=== PATIENT | female | born 1970 | race Caucasian/White ===

== ENCOUNTER 2022-10-11 11:24 | Emergency (ER) | payer MEDICAID, SELFPAY ==
--- NOTE | ~2022-10-11 | XR_ITS ---
EXAMINATION: XR CHEST CLINICAL INFORMATION: Cough COMPARISON: None TECHNIQUE: 2 views of the chest were obtained. FINDINGS: Lungs are clear. No focal consolidation or mass. Normal pulmonary vascularity. No pleural effusion or pneumothorax. Normal heart size. There are well-corticated ossific densities adjacent the right humeral head suggesting calcific tendinitis. XR/XR chest 2V IMPRESSION: No acute pulmonary disease. Suspect calcific tendinitis of the right rotator cuff.
--- NOTE | 2022-10-11 11:34 | ED.GENADULT ---
HPI - General Adult General Chief complaint: Extremity Problem Stated complaint: covid symptons Time Seen by Provider: 10/11/22 11:34 Source: patient Mode of arrival: ambulatory Limitations: no limitations History of Present Illness HPI narrative: Patient is a 52 year old assigned female at with no reported medical history presenting to the emergency department today with left shoulder pain. Patient states that she took a home COVID-19 test 4 days ago that was positive and she has been having back pain and left shoulder pain. Patient denies any dizziness, lightheadedness, abdominal pain, nausea, vomiting, fever, chills, blurry vision, double vision, loss of vision, chest pain, difficulty breathing, shortness of breath, back pain, night sweats, pain with urination, increased urinary frequency, increased urinary urgency, blood in her urine or stool, syncope or a near syncopal episode, recent trauma or falls, bowel incontinence, bladder incontinence, bowel retention, bladder retention, or any other complaints at this time. Onset (ago): day(s) (4) Location: left (shoulder) Radiation: non-radiation Severity: mild Severity scale (1-10): 2 Quality: aching and dull Pain Consistency: constant Relieving factors: none Exacerbating factors: none Associated symptoms: denies other symptoms Treatments prior to arrival: none Related Data Allergies Allergy/AdvReac Type Severity Reaction Status Date / Time ampicillin Allergy Hives Verified 10/11/22 12:04 Review of Systems Constitutional: Constitutional: Reports no additional constitutional complaints, Denies chills, Denies fever(s) and Denies night sweats Eyes: Eyes: Reports no additional eye complaints, Denies blurry vision, Denies change in vision, Denies diplopia, Denies eye discharge, Denies loss of vision and Denies eye pain ENT: Denies dizziness Cardiovascular: Cardiovascular: Reports no additional cardiovascular complaints, Denies chest pain, Denies lightheadedness, Denies Loss of Consciousness and Denies dyspnea Respiratory: Respiratory: Reports no additional respiratory complaints and Denies dyspnea Gastrointestinal: Gastrointestinal: Reports no additional gastrointestinal complaints, Denies abdominal pain, Denies melena, Denies hematochezia, Denies change in bowel habits and Denies change in stool character Genitourinary: Genitourinary: Denies hematuria, Denies urinary frequency, Denies dysuria, Denies urinary incontinence, Denies urinary hesitancy and Denies urinary urgency Musculoskeletal: Musculoskeletal: Reports no additional musculoskeletal complaints, Denies numbness and Denies tingling Comments: left shoulder pain Neurologic: Denies dizziness, Denies loss of vision, Denies numbness and Denies tingling Psychiatric: Psychiatric: Reports no additional psychiatric complaints Endocrine: Endocrine: Reports no additional endocrine complaints Hematologic/Lymphatic: Hematologic/Lymphatic: Reports no additional hematologic/lymphatic complaints Allergic/Immunologic: Allergic/Immunologic: Reports no additional allergic/immunologic complaints PMFSH Past Medical History Attestation statement: The following information was validated with the patient. Source: old records reviewed and nursing notes reviewed Social History Social History Alcohol intake: never Smoked in Last 30 Days: No Use of substances other than those prescribed or required for medical reasons: No Advance Directives: No Advance Directives Information Provided: Yes Patient : No Physical Exam ED Vital Signs: Vital Signs - 24 hr 10/11/22 11:38 Temperature 97.4 F Pulse Rate 96 Blood Pressure 157/77 H Pulse Oximetry 97 Oxygen Delivery Method Room Air BMI result Body Mass Index 27.4 Const General: cooperative, no acute distress, alert and awake Nutritional Appearance: well nourished Orientation/consciousness: patient oriented x3 Limitations: no limitations HENMT Head: Yes normal to inspection and Yes atraumatic Ears: hearing grossly normal bilaterally and external ears normal General nose exam: Normal external nose present, no nasal discharge noted and no epistaxis Face and sinus: Yes normal facial exam, No abrasion and No laceration Mouth: Normal oral and palatal mucosa present, no drooling and no muffled voice Eyes General: appearance normal, both eyes and all related structures Periorbital: periorbital findings normal Eyelids: Yes eyelids normal Conjunctivae: conjunctivae normal Pupils: Equal, round and reactive pupils present EOM: EOMs intact bilaterally Neck Neck: Yes normal visual inspection, Yes full ROM and Yes no lymphadenopathy Chest Chest palpation & inspection: normal inspection of the chest Resp Effort & Inspection: normal respiratory effort and able to speak in complete sentences Auscultation: clear to auscultation bilaterally Cardio Rate: regular rate Rhythm: regular rhythm GI Inspection: Yes normal to inspection Palpation (GI): Soft to palpation, not firm, nontender, no guarding and not rigid Neuro General: patient oriented x3 and moves all extremities Cranial nerves: Yes Equal, round and reactive pupils present Cognition (Neuro): normal cognition Motor exam (neuro): 5/5 motor strength present throughout Sensory Exam: Normal double simultaneous stimulation for sensation Coordination: [id number] test normal Extrem General: Yes normal to inspection, Yes full ROM and Yes capillary refill normal Psych Appearance: grossly normal Mental Status: mental status grossly normal Affect: normal affect Attitude: cooperative Thought process: Normal thought process present Thought content: Normal thought content present Insight: Good insight present (Psych) Medical Decision Making Medical Decision Making [facility] Narrative: Patient is a 52 year old assigned female at with no reported medical history presenting to the emergency department today with left shoulder pain. Patient's physical exam was unremarkable. Patient's COVID-19 test was positive. Patient's chest x-ray showed no acute process. I explained my physical exam findings as well as all test results to the patient. Patient's clinical presentation is most consistent with general myalgias with current COVID-19 infection. I answered all questions asked by the patient. I stressed the importance of the patient taking her medication as prescribed. I stressed the importance of the patient following up with her primary care provider. I stressed the importance of the patient returning to the emergency department immediately if her symptoms were to worsen or if she were to develop any dizziness, shortness of breath, difficulty breathing, chest pain, blurry vision, loss of vision, nausea, vomiting, abdominal pain, fever, chills, back pain, or any other complaints. Patient verbalized agreement and understanding with this treatment plan and discharge. Differential Diagnosis Differential Diagnoses: The differential diagnosis associated with the presentation includes COVID-19, myalgias Lab Data [facility] Lab Attestation statement: I reviewed the patient's lab results. Labs: Lab Results 10/11/22 Range/Units 12:28 Influenza Type A (PCR) NEGATIVE (Negative) Influenza Type B (PCR) NEGATIVE (Negative) RSV RNA Qual (PCR) NEGATIVE (Negative) SARS-CoV-2 RNA (RT-PCR) POSITIVE A (Negative) Radiology Impression Discussion of test interpretation with radiology: I have reviewed the radiologist's reading. Radiologist Impression: My interpretation is in agreement with the radiologist's impression of this imaging study. EXAMINATION: XR CHEST CLINICAL INFORMATION: Cough COMPARISON: None TECHNIQUE: 2 views of the chest were obtained. FINDINGS: Lungs are clear. No focal consolidation or mass. Normal pulmonary vascularity. No pleural effusion or pneumothorax.? Normal heart size. There are well-corticated ossific densities adjacent the right humeral head suggesting calcific tendinitis. XR/XR chest 2V IMPRESSION: No acute pulmonary disease. ? Suspect calcific tendinitis of the right rotator cuff. Dictated By: Benjy Hill MD Signed By: Electronically signed by Benjy Hill MD 10/11/22 1468 Discharge Plan Discharge Clinical Impression: COVID-19 Patient Disposition: Home, Self-Care Instructions: COVID-19 (Coronavirus Disease 2019) (ED) Additional Instructions: Follow up with your primary care provider. Return to the emergency department immediately if your symptoms worsen or if you develop any dizziness, shortness of breath, difficulty breathing, chest pain, blurry vision, loss of vision, nausea, vomiting, abdominal pain, fever, chills, back pain, or any other complaints. Referrals: [facility] Family Medicine [Provider Group] (Call to establish and follow up with a primary care provider. If you already have a primary care provider, please follow up with them. ) [facility] [Provider Group] (Call to establish and follow up with a primary care provider. If you already have a primary care provider, please follow up with them. ) [facility] [Provider Group] (Call to establish and follow up with a primary care provider. If you already have a primary care provider, please follow up with them. ) Interventions: ED Discharge Assessment Last Done: 10/11/22 13:54 Print Language: Macanese
[2022-10-11 11:38] VITALS: BP 157/77; PULSE 96; TEMP 36.3; O2SAT 97
[2022-10-11 12:02] VITALS: BMI 27.4
[2022-10-11 13:31] LABS: Influenza A PCR NEGATIVE (Negative); Influenza B PCR NEGATIVE (Negative); Resp Syncy Virus RNA Qual PCR NEGATIVE (Negative); SARS COV2 PCR INHOUSE POSITIVE (Negative)
== END 2022-10-11 13:54 | disposition home or self-care (01) ==
PROVIDERS: Physician Assistant Medical; Emergency Provider Emergency Medicine
DX: U07.1 COVID-19 (principal); M25.512 Pain in left shoulder
CPT/HCPCS: 0241U; 71046; 99283; 99284

== ENCOUNTER 2024-03-13 10:53 | Outpatient (REF) | payer MEDICAID, SELFPAY ==
[2024-03-13 14:24] LABS: MANUAL DIFF FLAG NO
[2024-03-13 14:36] LABS: Basophils Absolute Auto 0.1 X10*3/uL (0.0-0.2); Basophils Percent Auto 1.1 % (0-2); Eosinophils Absolute Auto 0.2 X10*3/uL (0.0-0.4); Eosinophils Percent Auto 2.4 % (0-4); Hematocrit 44.1 % (37.0-47.0); Hemoglobin 14.7 g/dl (12.0-16.0); Imm Gran Abs Auto 0.04 X10*3/uL (0.00-0.03); Imm Gran Pct Auto 0.5 % (0.0-0.4); Lymphocytes Absolute Auto 2.9 X10*3/uL (1.2-4.9); Lymphocytes Percent Auto 34.9 % (20-40); Mean Corpuscular HGB Conc 33.3 g/dl (31.0-35.0); Mean Corpuscular Hemoglobin 28.7 pg (27.0-33.0); Mean Corpuscular Volume 86.1 fL (80.0-98.0); Mean Platelet Volume 10.2 fL (9.4-12.3); Monocytes Absolute Auto 0.6 X10*3/uL (0.1-1.2); Monocytes Percent Auto 7.8 % (2-11); Neutrophils Absolute Auto 4.4 x10*3/uL (2.0-8.3); Neutrophils Percent Auto 53.3 % (45-73); Platelet Count 336 X10*3/uL (160-400); Red Blood Count 5.12 X10*6/uL (4.20-5.50); Red Cell Distribution Width 12.6 % (11.0-16.0); White Blood Count 8.2 X10*3/uL (4.8-10.8)
[2024-03-13 14:59] LABS: Magnesium 1.9 mg/dL (1.6-2.6)
[2024-03-13 15:15] LABS: TSH reflex Free T4 0.54 uIU/mL (0.32-4.0)
[2024-03-13 15:25] LABS: Folate 12.6 ng/mL (> or = 4.0); Vitamin B12 792 pg/mL (200-900)
[2024-03-14 03:57] LABS: Syphilis Screen Nonreactive (Nonreactive)
== END 2024-03-13 10:54 | disposition home or self-care (01) ==
LOC: HO.CHCLDS 10:53
PROVIDERS: Visit Provider Pediatrics
DX: R41.3 Other amnesia (principal)
CPT/HCPCS: 36415; 82607; 82746; 83735; 84443; 85025; 86780

== ENCOUNTER 2025-02-23 11:20 | Emergency (ER) | payer MEDICAID, SELFPAY ==
--- NOTE | ~2025-02-23 | XR_ITS ---
CLINICAL HISTORY: pain 3 view right shoulder Comparison: None Findings: No fractures or dislocations. Linear calcifications noted along the distal supraspinatus tendon. Mild joint space narrowing of the glenohumeral and acromioclavicular joints. No erosions. No radiopaque foreign body. IMPRESSION: No fracture or malalignment. Degenerative change and probable calcific tendinosis. This document has been electronically signed by: Quincy Ellis MD on 02/23/2025 12:27:38
[2025-02-23 11:30] VITALS: BP 171/79; PULSE 91; RESP 18; TEMP 36.3; O2SAT 95; BMI 29.7
--- NOTE | 2025-02-23 11:33 | ED_ITS ---
HPI - General Adult General Chief complaint: Extremity Injury, Upper Stated complaint: R arm pain, no injury Time Seen by Provider: 02/23/25 12:30 Source: patient and family () Mode of arrival: ambulatory Limitations: no limitations History of Present Illness ED Provider: KINGA THAO PA-C HPI narrative: 55 year old female with no significant pmhx presents to the ED today for evaluation of right shoulder pain that woke her from her sleep early this morning around 0430. Reports taking Tylenol at that time and was able to go back to sleep. When she woke up, her right shoulder pain was still present. Pain originates in right shoulder and radiates down to her fingers. Pain will occasionally radiate to her right chest. Pain is exacerbated wtih movement of the right shoulder. Admits to decreased ROM of right shoulder secondary to pain. No history of similar. No blunt trauma or injury. 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 Reports going bowling yesterday with repetitive arm movements. Denies cardiac history. Denies fever, chills, palpitations, SOB. Related Data Previous Rx's ?Medication ?Instructions ?Recorded prednisone 50 mg tablet 50 mg PO DAILY 5 days #5 tabs 02/23/25 Allergies Allergy/AdvReac Type Severity Reaction Status Date / Time ampicillin Allergy Hives Verified 02/23/25 11:32 Review of Systems 2 Review of Systems: Constitutional: No fever, chills, fatigue, night sweats, weight changes ENT/Mouth: No ear pain, hearing loss, nasal congestion, sinus pain, rhinorrhea, sore throat Eyes: No eye pain, swelling, redness, vision changes, discharge Cardio: No chest pain, palpitations, [place], orthopnea, peripheral edema Pulm: No SOB, cough, sputum, wheezing, dyspnea, hemoptysis GI: No nausea, vomiting, hematemesis, abdominal pain, diarrhea, constipation, hematochezia, melena : No irregular bleeding, dysuria, frequency, urgency, hesitancy, hematuria, flank pain, urinary flow changes, urinary incontinence or retention MSK: No back pain, neck pain, joint pain, myalgias, +RUE pain Skin: No lesions, rashes Neuro: No weakness, numbness, paresthesias, LOC, dizziness, headache Psych: No anxiety/panic, depression, SI/HI, AH/VH All other systems reviewed and are negative. Yes all other systems are reviewed and are negative [facility] Past Medical History Attestation statement: The following information was validated with the patient. Source: old records reviewed and nursing notes reviewed Social History Social History Alcohol intake: never Use of substances other than those prescribed or required for medical reasons: No Advance Directives: No Advance Directives Information Provided: Yes Patient : No Physical Exam ED Vital Signs: Vital Signs - 24 hr 02/23/25 13:24 02/23/25 14:36 Temperature 98.2 F Pulse Rate 77 77 Respiratory Rate 18 18 Blood Pressure 140/89 H 140/89 H Pulse Oximetry 95 95 Oxygen Delivery Method Room Air Room Air BMI result Body Mass Index 29.7 Hypertensive, vitals otherwise WNL. Afebrile General: Well appearing, in no acute distress. Skin: Warm, dry, intact. No rashes or lesions. Head: Normocephalic, atraumatic. EENT: Hearing is intact b/l. Conjunctiva clear. PERRLA. EOM intact. Moist mucous membranes.? Cardiac: Chest wall symmetric. RRR. Lungs: Normal respiratory effort without accessory muscle use. CTA bilaterally. Back: No midline spinous or paraspinal tenderness. No step off deformity. Ext: +tender to palpation along lateral aspect of right shoulder extending into right trapezius muscle. no palpable deformity, crepitus, warmth. limited ROM of right shoulder on abduction/extension. holding shoulder in adduction. able to supinate/pronate R elbow. 2+ radial pulse. sensation intact. 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 Neuro: AOx3. Normal speech. Ambulating with steady gait. Course Course Course Narrative: RME performed by Marian Mercer PA-C. Patient is a 55 year old assigned female at presenting to the emergency department with right shoulder pain x 2 weeks. Patient states over the last 2 weeks her shoulder pain has gotten significantly worse to the point where she can't move it well anymore. Detailed physical exam and review of systems are deferred to the esthetician permanent makeup artist. Imaging ordered. Patient placed back in the waiting room pending room availability and results. Reevaluation(s) Reevaluation #1: CBC without leukocutosis or left shift. No anemia, h&h stable. chemistry without acute electrolyte abnormality requiring intervention. BUN mildly elevated to 18, normal creatinine. troponin wnl at 3.6. ekg showing NSR with a rate of incomplete RBBB (evident on priors), no acute ischemic changes or st elevations. > xr right shoulder showing degenerative changes and probably calcific tendinosis. this is consistent with physical exam findings. will treat with prednisone. placed in sling, advised ROM throughout the day. advised PCP/ortho follow up. Patient has remained stable throughout ED visit today. Discussed worrisome signs and symptoms and when to return to the ED. All questions answered at this time. Patient is agreeable with disposition and stable for discharge. Medications Administered Discontinued Medications Generic Name Dose Route Start Last Admin Trade Name Freq PRN Reason Stop Dose Admin Ketorolac Tromethamine 30 mg 02/23/25 12:56 02/23/25 13:18 Ketorolac Tromethamine 30 Mg/Ml Vial IM 02/23/25 12:57 30 mg ONCE ONE Administration Medical Decision Making Medical Decision Making [facility] Narrative: 55 year old female with no significant pmhx presents to the ED today for evaluation of right shoulder pain that woke her from her sleep early this morning around 0430. Hypertensive, vitals otherwise WNL. She is nontoxic appearing in no acute distress. On exam of RUE, tender to palpation along lateral aspect of right shoulder extending into right trapezius muscle. no palpable deformity, crepitus, warmth. limited ROM of right shoulder on abduction/extension. holding shoulder in adduction. able to supinate/pronate R elbow. 2+ radial pulse. sensation intact. 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 Differential diagnosis includes arthritis, MSK sprain/strain, tendonitis, rotator cuff injury. Unlikely gout, pseudogout,, septic joint, Lyme arthritis. Unlikely DVT, neurovascular compromise, threat to limb, compartment syndrome. I have also considered ACS, arrhythmia. Unlikely PE. Plan for labs, imaging, pain control, and re-evaluation. Differential Diagnosis Differential Diagnoses: The differential diagnosis associated with the presentation includes As above Admission/Observation Not indicated Lab Data [facility] Lab Attestation statement: I reviewed the patient's lab results. As above 02/23/25 13:12 02/23/25 13:12 Labs: Lab Results 02/23/25 Range/Units 13:12 WBC 9.3 (4.8-10.8) X10*3/uL RBC 5.16 (4.20-5.50) X10*6/uL Hgb 14.5 (12.0-16.0) g/dl Hct 42.9 (37.0-47.0) % MCV 83.1 (80.0-98.0) fL MCH 28.1 (27.0-33.0) pg MCHC 33.8 (31.0-35.0) g/dl RDW 12.9 (11.0-16.0) % Plt Count 318 (160-400) X10*3/uL MPV 9.3 L (9.4-12.3) fL Immature Gran % (Auto) 0.5 H (0.0-0.4) % Neut % (Auto) 59.4 (45-73) % Lymph % (Auto) 29.8 (20-40) % [place] % (Auto) 7.4 (2-11) % Eos % (Auto) 2.0 (0-4) % Baso % (Auto) 0.9 (0-2) % Lymph # (Auto) 2.8 (1.2-4.9) X10*3/uL [place] # (Auto) 0.7 (0.1-1.2) X10*3/uL Eos # (Auto) 0.2 (0.0-0.4) X10*3/uL Baso # (Auto) 0.1 (0.0-0.2) X10*3/uL Abs Immat Gran (auto) 0.05 H (0.00-0.03) X10*3/uL Absolute Neuts (auto) 5.5 (2.0-8.3) x10*3/uL Absolute Nucleated RBC 0.030 H (0.0-0.012) X10*3/uL Nucleated RBC % (auto) 0.3 H (0.0-0.2) /100WBC Sodium 143 (135-145) mmol/L Potassium 3.9 (3.3-5.1) mmol/L Chloride 109 H (96-108) mmol/L Carbon Dioxide 25 (22-29) mmol/L Anion Gap 13 (12-20) BUN 18 H (9-16) mg/dL Creatinine 0.66 (0.5-1.4) mg/dL Estim Creat Clear Calc 91.8 Estimated GFR > 60 Random Glucose 90 (60-115) mg/dL Calcium 10.0 (8.4-10.2) mg/dL Magnesium 1.9 (1.6-2.6) mg/dL Troponin I High Sens 3.6 (<3.5-17.0) ng/L Independent Interpretation I performed an independent interpretation of an: EKG and Plain X-Ray Interpretation: xr right shoulder without fracture ekg showing normal sinus rhythm, rate of 76 beats per minute, incomplete right bundle-branch block evident on prior EKGs, no acute ischemic changes or ST elevations. Radiology Impression Discussion of test interpretation with radiology: I have reviewed the radiologist's reading. Radiologist Impression: Date of Service: 02/23/25 Procedure(s): XR shoulder RT min 2V Accession Number(s): [id number] cc: Audrey Ayon MD; Marian Mercer~ CLINICAL HISTORY: pain 3 view right shoulder Comparison: None Findings: No fractures or dislocations. Linear calcifications noted along the distal supraspinatus tendon. Mild joint space narrowing of the glenohumeral and acromioclavicular joints. No erosions. No radiopaque foreign body. IMPRESSION: No fracture or malalignment. Degenerative change and probable calcific tendinosis. This document has been electronically signed by: Quincy Ellis MD on 02/23/2025 12:27:38 Independent Historian Clinical information obtained from an independent historian. History obtained from or confirmed by: Spouse () External Record Review External record reviewed: Inpatient record Prescription Management I considered prescription management with: Other (Prednisone) Social Determinants Patient?s care significantly limited by Social Determinants of Health including: Other Social Determinant of Health Critical Care Time Critical Care Time Critical Care Time: No Discharge Plan Discharge Clinical Impression: Calcific tendinitis of right shoulder Patient Disposition: Home, Self-Care Instructions: Rotator Cuff Tendinitis (ED), Calcific Tendinitis (ED) Additional Instructions: You were evaluated in the ED today for right shoulder pain. Your blood work is reassuring. The x-ray of your right shoulder shows findings concerning for calcific tendonitis. See home care instructions. Treatment for this is pain management. Prednisone is a steroid that has been sent to your pharmacy. Take this as prescribed x5 days. I also recommend Tylenol and Motrin at home. Follow up with PCP. You may need a referral to physical therapy. Return with new or worsening symptoms. In the case of an emergency call 911. Prescriptions: New prednisone 50 mg tablet 50 mg PO DAILY 5 Days Qty: 5 0RF Referrals: [facility] Surgeons [Provider Group] Audrey Ayon MD [Primary Care Provider] - Interventions: ED Discharge Assessment Last Done: 02/23/25 14:36 Discharge Date/Time: 02/23/25 14:36 Print Language: Sammarinese
--- NOTE | 2025-02-23 12:55 | ECG_ITS ---
Test Reason : RIGHT SHOULDER Blood Pressure : */* mmHG Vent. Rate : 76 BPM Atrial Rate : 76 BPM P-R Int : 160 ms QRS Dur : 100 ms QT Int : 416 ms P-R-T Axes : 44 -25 15 degrees QTcB Int : 468 ms Normal sinus rhythm Incomplete right bundle branch block Minimal voltage criteria for LVH, may be normal variant ( R in aVL ) Nonspecific ST abnormality Abnormal ECG No previous ECGs available Referred By: Alice Roque Electronically Signed By: BARI PENG MD
[2025-02-23 13:16] LABS: MANUAL DIFF FLAG NO
[2025-02-23 13:17] LABS: Basophils Absolute Auto 0.1 X10*3/uL (0.0-0.2); Basophils Percent Auto 0.9 % (0-2); Eosinophils Absolute Auto 0.2 X10*3/uL (0.0-0.4); Hematocrit 42.9 % (37.0-47.0); Hemoglobin 14.5 g/dl (12.0-16.0); Imm Gran Abs Auto 0.05 X10*3/uL (0.00-0.03); Imm Gran Pct Auto 0.5 % (0.0-0.4); Lymphocytes Absolute Auto 2.8 X10*3/uL (1.2-4.9); Lymphocytes Percent Auto 29.8 % (20-40); Mean Corpuscular HGB Conc 33.8 g/dl (31.0-35.0); Mean Corpuscular Hemoglobin 28.1 pg (27.0-33.0); Mean Corpuscular Volume 83.1 fL (80.0-98.0); Mean Platelet Volume 9.3 fL (9.4-12.3); Monocytes Absolute Auto 0.7 X10*3/uL (0.1-1.2); Monocytes Percent Auto 7.4 % (2-11); NRBC Pct Auto 0.3 /100WBC (0.0-0.2); Neutrophils Absolute Auto 5.5 x10*3/uL (2.0-8.3); Neutrophils Percent Auto 59.4 % (45-73); Platelet Count 318 X10*3/uL (160-400); Red Blood Count 5.16 X10*6/uL (4.20-5.50); Red Cell Distribution Width 12.9 % (11.0-16.0); White Blood Count 9.3 X10*3/uL (4.8-10.8)
[2025-02-23] MEDS: Ketorolac Tromethamine 30 MG/ML VIAL IM (13:18)
--- NOTE | 2025-02-23 13:23 | PC.NURSE ---
IV started on pt. Informed provider that iv was started and that toradol will be given iv instead of IM. Provider okayed that.
[2025-02-23 13:24] VITALS: BP 140/89; PULSE 77; RESP 18; O2SAT 95
[2025-02-23 13:37] LABS: Anion Gap 13 (12-20); Blood Urea Nitrogen 18 mg/dL (9-16); Carbon Dioxide 25 mmol/L (22-29); Chloride 109 mmol/L (96-108); Creatinine Clr Calc Pharmacy 91.8; Estimated Glomerular Filt Rate > 60; Glucose Random 90 mg/dL (60-115); Magnesium 1.9 mg/dL (1.6-2.6); Potassium 3.9 mmol/L (3.3-5.1); Sodium 143 mmol/L (135-145)
[2025-02-23 13:44] LABS: Troponin-I High Sensitivity 3.6 ng/L (<3.5-17.0)
[2025-02-23 14:36] VITALS: BP 140/89; PULSE 77; RESP 18; TEMP 36.8; O2SAT 95
== END 2025-02-23 14:36 | disposition home or self-care (01) ==
PROVIDERS: Physician Assistant Medical; Emergency Provider Emergency Medicine; PCP Pediatrics
DX: M75.31 Calcific tendinitis of right shoulder (principal); M25.511 Pain in right shoulder
CPT/HCPCS: 36415; 73030; 80048; 83735; 84484; 85025; 93005; 96372; 99284; 99285; J1885

== ENCOUNTER → 2025-02-23 11:33 | Outpatient (BNV) | payer MEDICAID, SELFPAY | PROVIDERS: Emergency Provider Emergency Medicine; PCP Pediatrics; Visit Provider Radiology Vascular & Interventional Radiology | DX: M19.011 Primary osteoarthritis, right shoulder (principal) | CPT/HCPCS: 73030 ==

== ENCOUNTER → 2025-02-23 12:55 | Outpatient (BNV) | payer MEDICAID, SELFPAY | PROVIDERS: Emergency Provider Emergency Medicine; PCP Pediatrics; Visit Provider Internal Medicine Cardiovascular Disease | DX: I45.10 Unspecified right bundle-branch block (principal) | CPT/HCPCS: 93010 ==

== ENCOUNTER 2025-04-17 14:00 | Outpatient (RCR) | payer MEDICAID, SELFPAY | END 2025-05-17 06:15 | disposition home or self-care (01) | LOC: HO.PTCHIC 14:00 | PROVIDERS: PCP Pediatrics; Visit Provider Pediatrics | DX: M67.813 Other specified disorders of tendon, right shoulder (principal) | CPT/HCPCS: 97110; 97140; 97161 ==

== ENCOUNTER 2025-04-22 11:11 | Outpatient (AMB) | payer MEDICAID, SELFPAY ==
[2025-04-22 11:14] VITALS: BMI 29.6
--- NOTE | 2025-04-22 11:14 | MHC.OFFVIS ---
Vital Signs 04/22/25 11:14 Height 5 ft 3 in Weight 167 lb BMI 29.6 Intake Visit Reasons: Right shoulder pain and weakness Intake Note: Graciela is a 55 year old female left hand dominant who presents with complaints of progressively worsening right shoulder pain and weakness. The patient describes her pain as sharp and severe in nature. Her symptoms have gotten worse over the last 6 months in spite of continued non operative treatments. She has failed the last 6 weeks of conservative treatment which has included Tylenol, anti-inflammatory medicines, prednisone, a cortisone injection and formal physical therapy. She reports difficulty lifting her right hand above shoulder height. 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 No heavy Lifting. Physical Exam Vital Signs: BMI result Body Mass Index 29.6 Const Other: Well-nourished well-developed very friendly female awake alert and oriented x3 in no acute distress Extrem Other: Bilateral upper extremity examination shows good capillary refill, no skin lesions noted, normal sensation light touch Right shoulder examination shows decreased range of motion when compared to her left shoulder, 4+ out of 5 strength with supraspinatus testing, positive impingement signs, tenderness over her acromioclavicular joint, no instability Results Reviewed Results Reviewed: X-rays of the patient's right shoulder show severe acromioclavicular joint narrowing, a type 3 acromion, a small calcium deposit within the supraspinatus tendon Assessment & Plan Assessment & Plan (1) Rotator cuff insufficiency of right shoulder: Code(s): M25.311 - Other instability, right shoulder Category: Medical Plan Ms. Minaya presents with right shoulder pain and weakness due to impingement syndrome, calcific tendinitis and possible full-thickness rotator cuff tearing. Thus, I will send the patient for an MRI of her right shoulder for further evaluation. I will see her back once the MRI is completed to discuss the findings and treatment options. Feel free to call me at any time should questions regarding her orthopedic management arise. Thank you very much for asking me to see this very friendly patient. I spent 22 minutes in reviewing the patient's records and imaging studies, seeing the patient and documenting in the medical record. Orders: Orders MR shoulder RT wo con 04/23/25 M25.311 - Other instability, right shoulder Medications: Discontinued prednisone Discontinued Reason: Patient no longer taking 50 mg PO DAILY 5 days 5 tabs 0RF Coding Level of Care Code New Pt Level 3 (39398) Complex EM visit Add On G2211 Diagnoses Rotator cuff insufficiency of right shoulder M25.311
--- OUTSIDE RECORDS SUMMARY | 2025-04-22 12:29 | XMS_ITS | Encounter Summary ---
Author Organization [employer] Address [address] [place] [address] [place] [address] Care Team Providers Care Client Solutions Manager Name Role Phone Audrey Ayon MD Primary Care Provider [phone] Encounter Details Date Type Department Care Team (Latest Contact Info) Description 06/02/2022 Abstract [facility] CONVERSIONS Dental, Provider, DDS Social History Tobacco Use Types Packs/Day Years Used Date Smoking Tobacco: Never Assessed Comments Unknown Sex and Gender Information Value Date Recorded Sex Assigned at Female 07/26/2022 10:40 AM EDT Legal Sex Female 10:40 AM EDT Gender Identity Female 07/26/2022 10:40 AM EDT Sexual Orientation Straight 07/26/2022 10 :40 AM EDT documented as of this encounter Plan of Treatment Upcoming Encounters Date Type Department Care Team (Late st Contact Info) Description 06/24/2025 9:15 AM EDT Office Visit [facility] [address] [place] [address] Vidhya Bush MD [address] [place] [address] documented as of this encounter Visit Diagnoses Not on filedocumented in this encounter Care Teams Client Solutions Manager Relationship Specialty Start Date End Date Audrey Ayon MD [address] [place] [address] PCP - General Internal Medicine 02/01/23 documented as of this encounter
== END 2025-04-22 11:36 | disposition home or self-care (01) ==
LOC: HO.HOS 11:11
PROVIDERS: PCP Pediatrics; Visit Provider Orthopaedic Surgery
DX: M25.311 Other instability, right shoulder (principal)
CPT/HCPCS: 99203

== ENCOUNTER → 2025-04-22 11:11 | Outpatient (BNVA) | payer MEDICAID, SELFPAY | PROVIDERS: PCP Pediatrics; Visit Provider Orthopaedic Surgery | DX: M25.511 Pain in right shoulder (principal); M25.311 Other instability, right shoulder | CPT/HCPCS: 99202 ==

== ENCOUNTER → 2025-05-05 07:54 | Outpatient (BNV) | payer MEDICAID, SELFPAY | PROVIDERS: PCP Pediatrics; Visit Provider Radiology Diagnostic Radiology | DX: M25.311 Other instability, right shoulder (principal) | CPT/HCPCS: 73221 ==

== ENCOUNTER 2025-05-05 08:27 | Outpatient (REF) | payer MEDICAID, SELFPAY ==
--- NOTE | ~2025-05-05 | MR_ITS ---
CLINICAL HISTORY: M25.311 - Other instability, right shoulder Exam: MRI of the right shoulder without intravenous contrast. Comparison: Radiographs February 23, 2025. Findings: No rotator cuff tears are identified. Mild tendinopathy of the distal supraspinatus and infraspinatus tendons. Calcification in the expected location of the distal rotator cuff on the patient's radiographs is identified within the anterior and distal fibers of the supraspinatus tendon. Teres minor and subscapularis tendons are unremarkable. Mild glenohumeral joint DJD with areas of cartilage irregularity and osteophyte formation. No discrete labral tear. The tendon of the long head of the biceps is appropriately positioned within the bicipital groove. There is a type 2 acromion. Mild degenerative change of the AC joint. Impression: 1. 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 2. No rotator cuff tear. 3. 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 This document has been electronically signed by: Javid Gore MD on 05/07/2025 18:50:50
== END 2025-05-05 08:28 | disposition home or self-care (01) ==
LOC: HO.MRI 08:27
PROVIDERS: PCP Pediatrics; Visit Provider Orthopaedic Surgery
DX: M25.311 Other instability, right shoulder (principal)
CPT/HCPCS: 73221

== ENCOUNTER 2025-06-11 09:46 | Outpatient (AMB) | payer MEDICAID, SELFPAY ==
--- NOTE | 2025-06-11 09:51 | A.OFFVIS_ITS ---
Vital Signs 06/11/25 09:54 Height 5 ft 3 in Weight 165 lb BMI 29.2 Intake Visit Reasons: OV- Rt shoulder MRI review Intake Note: Graciela is a 55 year old female who presents with complaints of progressively worsening right shoulder pain and stiffness. She describes her pain as sharp and severe in nature. Most of the pain is along the superior and lateral aspects of her shoulder. Her symptoms have gotten worse over the last few years in spite of continued non operative treatments. The patient states that she has difficulty lifting her right hand above shoulder height. She has tried Tylenol and anti-inflammatory medicines which gave her minimal relief. She has also done physical therapy which aggravated her pain. She has had cortisone injections in the past. The most recent injection gave her no relief. 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 No heavy Lifting. Physical Exam Vital Signs: BMI result Body Mass Index 29.2 Const Other: Well-nourished well-developed very friendly female awake alert and oriented x3 in no acute distress Extrem Other: Right shoulder examination shows decreased active and passive range of motion when compared to her left shoulder, 4+ out of 5 strength with supraspinatus testing, positive impingement signs, no instability Results Reviewed Results Reviewed: MRI of the patient's right shoulder show severe acromioclavicular joint n arrowing, a type 2 acromion, signal change within the supraspinatus tendon most likely due to adhesive capsulitis, a small calcium deposit within the supraspinatus tendon Assessment & Plan Assessment & Plan (1) Impingement syndrome of left shoulder: Code(s): M75.42 - Impingement syndrome of left shoulder Category: Medical Plan Ms. Minaya presents with right shoulder pain and stiffness due to impingement syndrome, acromioclavicular joint arthritis, adhesive capsulitis and a small calcium deposit within the supraspinatus tendon. I had a lengthy discussion with the patient regarding the treatment options. At this point she has failed continued non operative treatments. The risks and benefits of left shoulder surgery were discussed at length with the patient. The patient wishes to proceed. Surgery will most likely involve right shoulder arthroscopic distal clavicle excision, right shoulder arthroscopic acromioplasty, right shoulder arthroscopic capsular release and manipulation under anesthesia. The patient will be scheduled for next available date. She will follow-up as instructed. Feel free to call me at any time should questions regarding her orthopedic management arise. I spent 20 minutes in reviewing the patient's records and imaging studies, seeing the patient and documenting in the medical record. Coding Level of Care Code Est Pt Level 3 (95381) Complex EM visit Add On G2211 Diagnoses Impingement syndrome of left shoulder M75.42
[2025-06-11 09:54] VITALS: BMI 29.2
--- OUTSIDE RECORDS SUMMARY | 2025-06-11 12:32 | XMS_ITS | Clinical Summary ---
Author Organization [employer] Address [address] [place] [address] 7 [place] [address] Care Team Providers Care Dinkey Locomotive Operator Name Role Phone Audrey Ayon MD Primary Care Provider [phone] Allergies Active Allergy Reactions Criticality Noted Date Comments Ampicillin Hives Low 03/13/2024 Acetaminophen Low 03/13/2024 Upset stomach Medications meloxicam (Mobic) 7.5 MG tablet Take 1 tablet (7.5 mg) by mouth 2 times daily. 60 tablet 11 03/20/2025 Active Diclofenac Sodium (Voltaren) 1 % gel Use topical BID 100 g 3 03/20/2025 Active cyclobenzaprine (Flexeril) 10 MG tablet TAKE 1 TABLET BY MOUTH THREE TIMES DAILY FOR 10 DAYS 30 tablet 04/01/2025 Active Active Problems Problem Noted Date Diagnosed Date Anxiety 01/27/2023 Mood disorder 01/27/2023 Encounters Date Type Department Care Team Description 06/11/2025 Telephone [facility] [address] [place] [address] Audrey Ayon MD Pre-op Exam 05/05/2025 Orders Only [facility] External Provider, [facility] 04/05/2025 Telephone [facility] [address] [place] [address] Audrey Ayon MD Nurse Triage 04/05/2025 Telephone [facility] [address] [place] [address] Audrey Ayon MD Medication Question 03/31/2025 Refill [facility] [address] [facility] [place] [address] Vidhya Bush MD 03/20/2025 8:45 AM EDT Office Visit [facility] [address] [facility] [place] [address] Vidhya Bush MD Tendinosis of right shoulder (Primary Dx) 03/20/2025 Travel 03/19/2025 Travel from Last 3 Months Social History Tobacco Use Types Packs/Day Years Used Date Smoking Tobacco: Never Passive Smoke Exposure: Never Smokeless Tobacco: Never Tobacco Cessation:Counseling Given: Not Answered Depression Answer Date Recorded Patient Health Questionnaire-9 Score 10 03/13/2024 Patient Health Questionnaire-9 Score 10 03/13/2024 Last PHQ-9: Questionnaire Data Not on file 0 03/13/2024 Housing Stability Answer Date Recorded What is your housing situation today? I have shana herman 03/05/[address] you li ve. Do you have problems with any of the following? None of the above 03/05/2024 Food Insecurity Answer Date Recorded Within the past 12 months, y ou worried that your food would run out before you got money to buy more: Never True 03/05/2024 Within the past 12 months,th e food you bought just didn't last and you didn't have enough money to get more: Never True 06/2024 Transportation Answer Date Recorded In the past 12 months, has l ack of transportation kept you from medical appts, meetings, work or from getting things needed for daily living? No 03/05/2024 Utilities Answer Date Recorded In the past 12 months, has t he [employer], gas, oil or water [employer] threatened to shut off services in your home? No 03/05/2024 Depression Answer Date Recorded Patient Health Questionnaire-2 Score 0 03/13/2024 Internet Access Answer Date Recorded Internet Access Q1 Yes 01/17/2025 Internet Access Q2 Not on file 01/17/2025 Comments No Sex and Gender Information Value Date Recorded Sex Assigned at Female 07/26/2022 10:40 AM EDT Legal Sex Female 10:40 AM EDT Gender Identity Female 07/26/2022 10:40 AM EDT Sexual Orientation Straight 07/26/2022 10 :40 AM EDT Last Filed Vital Signs Vital Sign Reading Time Taken Comments Blood Pressure 157/89 03/20/2025 8:52 AM EDT Pulse 80 03/20/2025 8:52 AM EDT Temperature 37.1 C (98.7 F) 03/20/2025 8:52 AM EDT Respiratory Rate 14 03/20/2025 8:52 AM EDT Oxygen Saturation 97% 03/20/2025 8:52 AM EDT Inhaled Oxygen Concentration - - Weight 72.6 kg (160 lb) 03/20/2025 8:52 AM EDT Height 160 cm (5' 3 ) 03/20/2025 8:52 AM EDT Body Mass Index 28.34 03/20/2025 8:52 AM EDT Plan of Treatment Upcoming Encounters Date Type Department Care Team (Late st Contact Info) Description 06/24/2025 9:15 AM EDT Office Visit [facility] [address] [place] [address] Vidhya Bush MD [address] [place] [address] Health Maintenance Due Date Last Done Comments CT Colonography 1968 Colonoscopy 1968 Dental Prophylaxis 1968 FIT 1968 FOBT 1968 Sigmoidoscopy 1968 Alcohol/Substance Use Screening 1980 DTaP/Tdap/Td Vaccines (1 - Tdap) 01/08/1987 Hepatitis B Vaccines (1 of 3 - 19+ 3-dose series) 01/08/1987 Pneumococcal Vaccine: 50+ Years (1 of 1 - PCV) 01/08/2018 Zoster Vaccines (1 of 2) 01/08/2018 Dental Oral Exam 12/01/2022 06/02/2022 Dental X-Ray: Bitewings 06/03/2023 06/02/2022 Depression Monitoring 09/12/2024 03/13/2024 , 03/13/2024 COVID-19 Vaccine (1 - 2023-2 5 season) 2025 Influenza Vaccine (#1) 2025 Dental X-Ray: Full Mouth 06/03/2025 06/02/2022 SDOH Screening 01/17/2026 01/17/2025 Colorectal Cancer Screening 02/10/2026 FIT DNA/Cologuard 02/10/2026 Mammogram 02/20/2026 02/21/2024 Disability Screening 03/01/2026 03/01/2025 Tobacco Screening 03/05/2026 03/05/2025 Cervical Cancer Screening 02/02/2028 HPV/Cotest 02/02/2028 02/01/2023 Pap Smear 02/02/2028 02/01/2023 RSV Patients and Patients Aged 60 years or older (1 - 1-dose 75+ series) 01/08/2043 HIV Screening Completed 01/28/2023 Hepatitis C Screening Completed 01/28/2023 HIB Vaccines Aged Out No longer eligi ble based on patient's age to complete this topic HPV Vaccines Aged Out No longer eligi ble based on patient's age to complete this topic Hepatitis A Vaccines Aged Out No long er eligible based on patient's age to complete this topic IPV Vaccines Aged Out No longer eligi ble based on patient's age to complete this topic Meningococcal B Vaccine Aged Out No l onger eligible based on patient's age to complete this topic Meningococcal Vaccine Aged Out No carissa bunny eligible based on patient's age to complete this topic RSV under 20 months Aged Out No longe r eligible based on patient's age to complete this topic Rotavirus Vaccines Aged Out No longer eligible based on patient's age to complete this topic Procedures Procedure Name Priority Date/Time Associated Diagnosis Comments MR SHOULDER WO CONTRAST RIGHT Routine 05/07/2025 6:50 PM EDT HM MAMMOGRAPHY Routine 02/21/2024 IMAGE-GUIDED PAP W/AGE BASED SCR,W/CT/NG/TRICH Routine 02/01/2023 9:45 AM EDT Encounter for gynecological examination without abnormal finding HEPATITIS PANEL, GENERAL Routine 01/28/2023 8:37 AM EDT Routine screening for STI (sexually transmitted infection) Routine medical exam HIV 1 RNA, QN PCR W/RFL FRANTZ (RTI,PI,INTEGRASE) Routine 01/28/2023 8:37 AM EDT Routine screening for STI (sexually transmitted infection) Routine medical exam from Last 3 Months or Most Recently Relevant to Health Maintenance Results * MR Shoulder w/o Contrast Right (05/07/2025 6:50 PM EDT) Anatomical Region Laterality Modality Upper Extremities, Shoulder Right Magn etic Resonance 05/07/2025 6:50 PM EDT Narrative 05/07/2025 6:51 PM EDT [place] [address] Magnetic Resonance Report Signed Patient: Graciela Minaya MR#: [id number] 0 : 1970 Acct:[id number] Age/Sex: 55 / F ADM Date: 05/05/25 Loc: HO.MRI Attending Dr: Magdiel Field MD Ordering Physician: Magdiel Field MD Date of Service: 05/05/25 Procedure(s): MR shoulder RT wo con Accession Number(s): [id number] cc: Audrey Ayon MD; Magdiel Field MD CLINICAL HISTORY: M25.311 - Other instability, right shoulder Exam: MRI of the right shoulder without intravenous contrast. Comparison: Radiographs February 23, 2025. Findings: No rotator cuff tears are identified. Mild tendinopathy of the distal supraspinatus and infraspinatus tendons. Calcification in the expected location of the distal rotator cuff on the patient's radiographs is identified within the anterior and distal fibers of the supraspinatus tendon. Teres minor and subscapularis tendons are unremarkable. Mild glenohumeral joint DJD with areas of cartilage irregularity and osteophyte formation. No discrete labral tear. The tendon of the long head of the biceps is appropriately positioned within the bicipital groove. There is a type 2 acromion. Mild degenerative change of the AC joint. Impression: 1. 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 2. No rotator cuff tear. 3. 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 This document has been electronically signed by: Javid Gore MD on 05/07/2025 18:50:50 Dictated By: Javid Gore MD Signed By: <Electronically signed by Javid Gore MD in OV> 05/07/251850 DD/ 49 TD/TT: 05/07/251849 Director Engineering: Procedure Note Donotmitziinterpreter, Image - 05/07/[address] [address] Magnetic Resonance Report Signed Patient: Graciela Minaya#: [id number] 0 : 1970Acct:[id number] Age/Sex: 55 / FADM Date: 05/05/25 Loc: HO.MRI Attending Dr: Magdiel Field MD Ordering Physician: Magdiel Field MD Date of Service: 05/05/25 Procedure(s): MR shoulder RT wo con Accession Number(s): [id number] cc: Audrey Ayon MD; Magdiel Field MD CLINICAL HISTORY: M25.311 - Other instability, right shoulder Exam: MRI of the right shoulder without intravenous contrast. Comparison: Radiographs February 23, 2025. Findings: No rotator cuff tears are identified. Mild tendinopathy of the distal supraspinatus and infraspinatus tendons. Calcification in the expected location of the distal rotator cuff on the patient's radiographs is identified within the anterior and distal fibers of the supraspinatus tendon. Teres minor and subscapularis tendons are unremarkable. Mild glenohumeral joint DJD with areas of cartilage irregularity and osteophyte formation. No discrete labral tear. The tendon of the long head of the biceps is appropriately positioned within the bicipital groove. There is a type 2 acromion. Mild degenerative change of the AC joint. Impression: 1. 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 2. No rotator cuff tear. 3. 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 This document has been electronically signed by: Javid Gore MD on 05/07/2025 18:50:50 Dictated By: Javid Gore MD Signed By: <Electronically signed by Javid Gore MD in OV> 05/07/251850 DD/ 49 TD/TT: 05/07/251849 Director Engineering: [facility] External Provider IMG MRI PROCEDURES Final Result * Mammography (02/21/2024) Mammogram BIRADS 1 Normal, Abnormal, BIRADS 1 , BIRADS 2 Anatomical Region Laterality Modality Other Audrey Ayon MD HEALTH MAINTENANCE Final Resu lt * Image-Guided Pap with Age-Based Screening??with CT/NG,??Trichomonas (02/01/2023 9:45 AM EDT) Comment [facility] Comment: This order for age-based cervical cancer and STI screening follows ACOG guidelines(PB 168, 140, XQW422). See individual assays for performing site location. Clinical Information: Postmenopausal [facility] LMP: PM [facility] Prev. PAP: NONE GIVEN [facility] Prev. BX: NONE GIVEN [facility] SOURCE: Cervix [facility] Statement Of Adequacy: [facility] Comment: Satisfactory for evaluation. Endocervical/transformation zone component present. Interpretation/Re sult: Negative for intraepithelial lesion or malignancy. [facility] COMMENT: This Pap test has been evaluated with computer assisted technology. Net[employer] Wood Carving Machine Operator: [email or web address] Comment: WAC, CT(ASCP) CT screening location: [place] [address] (Always Message) [facility] Comment: EXPLANATORY NOTE: The Pap is a screening test for cervical cancer. It is not a diagnostic test and is subject to false negative and false positive results. It is most reliable when a satisfactory sample, regularly obtained, is submitted with relevant clinical findings and history, and when the Pap result is evaluated along with historic and current clinical information. HPV nRNA E6/E7 Not Detected Not Detected [facility] Comment: Methodology: Poultry Cleaner-Mediated Amplification This assay detects E6/E7 viral messenger RNA (mRNA) from 14 high-risk HPV types (16,18,31,33,35,39,45,51,52,56,58,59,66,68). Cervical sources are required for HPV testing. If a vaginal source from a patient who has had a total hysterectomy with removal of cervix was submitted, please contact the testing laboratory for alternative testing options. For additional information, please refer to http://Nanoflex.Like.com/faq/TTR435p5 (This link if provided for information/ educational purposes only.) Chlamydia trachomatis RNA, TMA, Urogenital NOT DETECTED NOT DETECTED [facility] Neisseria gonorrhoeae RNA, TMA, Urogenital NOT DETECTED NOT DETECTED [facility] (Always Message) [facility] Comment: The analytical performance characteristics of this assay, when used to test SurePath(TM) specimens have been determined by [facility]. The modifications have not been cleared or approved by the FDA. This assay has been validated pursuant to the CLIA regulations and is used for clinical purposes. For additional information, please refer to https://Nanoflex.Like.com/faq/TOU350 (This link is being provided for information/ educational purposes only.) Trichomonas vaginalis, QL, TMA, PAP Vial NOT DETECTED NOT DETECTED [facility] Comment: The analytical performance characteristics of this assay have been determined by [facility]. The modifications have not been cleared or approved by the FDA. This assay has been validated pursuant to the CLIA regulations and is used for clinical purposes. For additional information, please refer to http://Nanoflex.Like.com/ faq/Trichomonastma (This link is being provided for information/ educational purposes only.) Cervix 02/01/2023 9:45 AM EDT 02/02/2023 9:43 AM EDT Audrey Ayon MD LAB CYTOLOGY ORDERABLES Final Result [facility] [address], [place] [address] [facility] [address] [place] [address] * HIV-1 RNA, Quantitative, Real-Time PCR with Reflex to Genotype (RTI, PI, Integrase) (01/28/2023 8:37 AM EDT) HIV 1 RNA, QN PCR NOT DETECTED copies/mL [facility], HIV 1 RNA, QN PCR NOT DETECTED Log copies/mL [facility], Comment: REFERENCE RANGE: NOT DETECTED copies/mL NOT DETECTED Log copies/mL This test was performed using Real-Time Polymerase Chain Reaction. Reportable range is 20 to 10,000,000 copies/mL (1.30-7.00 Log copies/mL). 01/28/2023 8:37 AM EDT 01/28/2023 8:38 AM EDT Narrative [facility] - 01/30/2023 10:11 PM EDT FASTING:YES FASTING: YES us Audrey Ayon MD LAB BLOOD ORDERABLES Final Re sult [facility] [address], [facility] [place] [address] [facility], [address] [place] [address] * Hepatitis Panel, General (01/28/2023 8:37 AM EDT) Hepatitis A Antibody Total NON-REACT MAMADOU NON-REACT MAMADOU [facility] Comment: For additional information, please refer to http://education.Like.com/faq/IPS021 (This link is being provided for informational/ educational purposes only.) Hepatitis B Surface Antibody QL NON-REACT MAMADOU NON-REACT MAMADOU [facility] Hepatitis B Surface Ag NON-REACT MAMADOU NON-REACT MAMADOU [facility] Hepatitis B Core Antibody Total NON-REACT MAMADOU NON-REACT MAMADOU [facility] Hepatitis C Antibody NON-REACT MAMADOU NON-REACT MAMADOU [facility] Index 0.06 <1.00 [facility] Comment: HCV antibody was non-reactive. There is no laboratory evidence of HCV infection. In most cases, no further action is required. However, if recent HCV exposure is suspected, a test for HCV RNA (test code 60859) is suggested. For additional information please refer to http://education.Like.com/faq/HBN42f9 (This link is being provided for informational/ educational purposes only.) 01/28/2023 8:37 AM EDT 01/28/2023 8:38 AM EDT Narrative [facility] - 01/30/2023 10:11 PM EDT FASTING:YES FASTING: YES us Audrey Ayon MD LAB BLOOD ORDERABLES Final Re sult [facility] [address], [place] [address] [facility] [employer] [address] [place] [address] from Last 3 Months or Most Recently Relevant to Health Maintenance Insurance [facility] C3 DENTAL-[facility] MEDICAID STAND ADULT [address] [place] [address] [place] [id number] [place] [id number] [place] [id number] Care Teams Dinkey Locomotive Operator Relationship Specialty Start Date End Date Audrey Ayon MD [address] [place] [address] [place] [address] PCP - General Internal Medicine 02/01/23
--- OUTSIDE RECORDS SUMMARY | 2025-06-11 12:32 | XMS_ITS | Encounter Summary ---
Author Organization [employer] Address [address] [place] [address] Care Team Providers Care Hand Molder Name Role Phone Audrey Ayon MD Primary Care Provider [phone] Encounter Details Date Type Department Care Team (Latest Contact Info) Description 06/02/2022 Abstract [facility] CONVERSION[facility] Dental, Provider, DDS Social History Tobacco [...] Description 06/24/2025 9:15 AM EDT Office Visit [facility] [address] [place] [address] Vidhya Bush MD [address] [place] [address] documented as of this encounter Visit Diagnoses Not on filedocumented in this encounter Care Teams Hand Molder Relationship Specialty Start Date End Date Audrey Ayon MD [address] [place] [address] PCP - General Internal Medicine 02/01/23 documented as of this encounter
--- OUTSIDE RECORDS SUMMARY | 2025-06-11 12:32 | XMS_ITS | Encounter Summary ---
Author Organization [employer] Address [address] [facility] 7 [place] [address] Care Team Providers Care Hot Water Heater Installer Name Role Phone Audrey Ayon MD Primary Care Provider [phone] Reason for Visit * Reason Onset Date Comments Pre-op Exam 06/11/2025 Encounter Details Date Type Department Care Team ([facility] st Contact Info) Description 06/11/2025 Telephone [facility] [address] [place] [address] Audrey Aoyn MD [address] [place] [address] Pre-op Exam Social History Tobacco Use Types Packs/Day Years Used Date Smoking Tobacco: Never Passive Smoke Exposure: Never Smokeless Tobacco: Never Depression Answer Date Recorded Patient Health Questionnaire-9 [...] the past 12 months, has t he electric, gas, oil or water company threatened to shut off services in your [...] AM EDT documented as of this encounter Miscellaneous Notes * Telephone Encounter - Nirmal Michaud - 06/11/2025 10:28 AM EDT Date of Surgery: 07/26/2025 Surgical procedure being done: Right shoulder arthroscopy Type of anesthesia: general anesthesia Lab needed: Yes EKG: Yes Surgeon's name: Dr. Jarad Field [place] [facility] [place] Surgeon's office number: [phone] Surgeon's office fax number: [phone] Contact name (person you spoke with): Janice Last office note from surgeon requested: Yes Send Message to Laureano Ortiz documented in this encounter Plan of Treatment Upcoming Encounters Date Type Department Care Team (Late st Contact Info) Description 06/24/2025 9:15 AM EDT Office Visit [facility] [address] [place] [address] Vidhya Bush MD [address] [place] [address] documented as of this encounter Visit Diagnoses Not on filedocumented in this encounter Additional Health Concerns Assessment Noted Time PHQ-9 Depression Total Score: 10 024 9:51 AM EDT documented as of this encounter Care Teams Hot Water Heater Installer Relationship Specialty Start Date End Date Audrey Ayon MD [address] [place] [address] PCP - General Internal Medicine 02/01/23 documented as of this encounter
== END 2025-06-11 10:17 | disposition home or self-care (01) ==
LOC: HO.HOS 09:47
PROVIDERS: PCP Pediatrics; Visit Provider Orthopaedic Surgery
DX: M75.41 Impingement syndrome of right shoulder (principal)
CPT/HCPCS: 99214

== ENCOUNTER → 2025-06-11 09:46 | Outpatient (BNVA) | payer MEDICAID, SELFPAY | PROVIDERS: PCP Pediatrics; Visit Provider Orthopaedic Surgery | DX: Z71.2 Person consulting for explanation of examination or test findings (principal); M25.511 Pain in right shoulder; M75.41 Impingement syndrome of right shoulder | CPT/HCPCS: 99212 ==

== ENCOUNTER 2025-06-26 12:33 | Outpatient (REF) | payer MEDICAID, SELFPAY ==
--- OUTSIDE RECORDS SUMMARY | 2025-06-26 10:45 | XMS_ITS | Encounter Summary ---
Author Organization [employer] Address [address] [place] [address] 7 [place] [address] Care Team Providers Care Knot Tier Name Role Phone Audrey Ayon MD Primary Care Provider [phone] Encounter Details Date Type Department Care Team ([facility] st Contact Info) Description 06/26/2025 10:45 AM EDT Office Visit [facility] MED [facility] PEDS [address] [place], [place] [phone] Koko Pearson, PHYSIOLOGICAL CHEMIST [address] [place], [place] [phone] Pre-op evaluation (Primary Dx); Psoriasis Social History Tobacco Use Types Packs/Day Years [...] AM EDT documented as of this encounter Last Filed Vital Signs Vital Sign Reading Time Taken Comments Blood Pressure 132/84 06/26/2025 10:46 AM EDT Pulse 84 06/26/2025 10:46 AM EDT Temperature 36.9 C (98.4 F) 06/26/2025 10:46 AM EDT Respiratory Rate 20 06/26/2025 10:46 AM EDT Oxygen Saturation - - Inhaled Oxygen Concentration - - Weight 75.3 kg (166 lb) 06/26/2025 10:46 AM EDT Height 160 cm (5' 3 ) 06/26/2025 10:46 AM EDT Body Mass Index 29.41 06/26/2025 10:46 AM EDT documented in this encounter Functional Status * Over the last 2 weeks, how often have you been bothered by any of the following problems? Question Answer Date of Assessment Author Feeling nervous, anxious, or on edge 0 06/26/2025 12:50 PM EDT Sa yaniv Chan MA Not being able to stop or control worrying 0 06/26/2025 12:50 PM EDT Sa yaniv Chan MA Worrying too much about different things 0 06/26/2025 12:50 PM EDT Sa yaniv Chan MA Trouble relaxing 0 06/26/2025 12:50 PM EDT Fernanda Chan MA Being so restless that it is hard to sit still 0 06/26/2025 12:50 PM EDT Sa yaniv Chan MA Becoming easily annoyed or irritable 0 06/26/2025 12:50 PM EDT Sa yaniv Chan MA Feeling afraid as if somethi ng awful might happen 0 06/26/2025 12:50 PM EDT Sa yaniv Chan MA IWONA-7 Total Score 0 06/26/2025 12:50 PM EDT Fernanda Chan MA documented as of this encounter Progress Notes * Koko Pearson CNP - 06/26/2025 10:45 AM EDT Graciela Minaya is a 55 y.o. female with PMH of calcific tendinitis and rotator cuff insufficiency ofR shoulder who presents to the office for a preoperative evaluation. Date of Surgery: 07/12/2025 Surgical procedure being done: Right shoulder arthroscopy Type of anesthesia: general anesthesia Lab needed: Yes EKG: Yes Surgeon's name: Dr. Jarad Field Facility name: [facility] Surgeon's office number: [phone] Surgeon's office fax number: [phone] Contact name (person you spoke with): Janice Last office note from surgeon requested: Yes Chronic Medical Conditions: Problem List[1] Allergies: Allergies[2] Review of Systems Denies personal or family history of bleeding diathesis or life-threatening anesthetic reactions Denies kidney disease, thyroid disease, liver disease, asthma, or diabetes. Denies history of stroke. Denies problems with pain, stiffness, or arthritis in neck or jaw. Denies history of sleep apnea, loud snoring, or waking from sleep choking or gasping. Denies allergy to tape, iodine, or latex Able to walk up a flight of stairs or run across a street without needing to stop to catch breath No known cardiac history, denies history of irregular heartbeat No history of alcohol withdrawal; not a regular, heavy drinker. OBJECTIVE Visit Vitals BP 132/84 (BP Location: Left arm, Patient Position: Sitting, BP Cuff Size: Adult) Pulse 84 Temp 98.4 ??F (36.9 ??C) (Oral) Resp 20 Ht 5' 3 (1.6 m) Wt 166 lb (75.3 kg) LMP 09/26/2016 (Approximate) BMI 29.41 kg/m?? OB Status Postmenopausal Smoking Status Never BSA 1.83 m?? Physical Exam Constitutional: Appearance: Normal appearance. She is normal weight. Cardiovascular: Rate and Rhythm: Normal rate and regular rhythm. Pulses: Normal pulses. Heart sounds: Normal heart sounds. No murmur heard. No friction rub. No gallop. Pulmonary: Effort: Pulmonary effort is normal. No respiratory distress. Breath sounds: Normal breath sounds. No wheezing or rales. Neurological: General: No focal deficit present. Mental Status: She is alert and oriented to person, place, and time. Psychiatric: Mood and Affect: Mood normal. Behavior: Behavior normal. Thought Content: Thought content normal. Judgment: Judgment normal. Problem List Items Addressed This Visit None Visit Diagnoses Pre-op evaluation - Primary Relevant Orders CBC auto differential Comprehensive Metabolic Panel Prothrombin Time-INR Partial Thromboplastin Time, Activated (APTT) Psoriasis Relevant Medications triamcinolone (Kenalog) 0.1 % cream PREOPERATIVE ASSESSMENT AND PLAN: -H&P completed -Medication list reviewed pt not on any meds at this time -The incidence of perioperative cardiovascular events varies according to the patient risk profile,patient's functional capacity, and risk of the proposed surgery. Active cardiac conditions that are contraindications to elective surgery: Surgery-Specific Cardiac Risk: medium High = anything that involves a vessel - even if it is in your hand Low = skin, eyes Intermediate = everything else Cardiac risk by patient profile (RCRI): Patient has 0 risk factors corresponding to 3.6%risk of a major cardiac event during surgery. Functional capacity = 10 METS. The patient reports being able to walk up 1 one flight of stairs and2 blocks without stopping. NSR, RBBB, QT interval prolongation versus artifact, no ST segmental changes. Consistent with priorstudies. This patient is at low risk for an intermediate risk procedure. The patient is at acceptable risk for the proposed procedure. Reviewed with patient that no surgery is completely free of risk and thisevaluation is to assist surgeon in accurately reviewing informed consent. Revised Cardiac Risk Index: No risk factors - 0.4% (95% CI 0.1-0.8) 1 risk factor - 1.0% (95% CI 0.5-1.4) 2 risk factors - 2.4% (95% CI 1.3-3.5) 3 or more risk factors - 5.4% (95% CI 2.8-7.9) Medication Recs: -Hold aspirin and NSAIDs 5 days before surgery Medications Ordered Prior to Encounter[3] [1] Patient Active Problem List Diagnosis Calcific tendinitis of right shoulder COVID-19 Rotator cuff insufficiency of right shoulder [2] Allergies Allergen Reactions Ampicillin Hives Tylenol [Acetaminophen] Upset stomach [3] Current Outpatient Medications on File Prior to Visit Medication Sig Dispense Refill [DISCONTINUED] cyclobenzaprine (Flexeril) 10 MG tablet TAKE 1 TABLET BY MOUTH THREE TIMES DAILY FOR10 DAYS 30 tablet 0 [DISCONTINUED] Diclofenac Sodium (Voltaren) 1 % gel Use topical BID 100 g 3 [DISCONTINUED] meloxicam (Mobic) 7.5 MG tablet Take 1 tablet (7.5 mg) by mouth 2 times daily. 60 tablet 11 No current facility-administered medications on file prior to visit. documented in this encounter Plan of Treatment Scheduled Orders Name Type Priority Associated Diagnoses Orde r Schedule CBC auto differential Lab Routine Pre-op evaluation Expected: 06/26/2025 (Approximate), Expires: 06/26/2026 Comprehensive Metabolic Panel Lab Routine Pre-op evaluation Expected: 06/26/2025 (Approximate), Expires: 06/26/2026 Prothrombin Time-INR Lab Routine Pre-op evaluation Expected: 06/26/2025, Expires: 06/26/2026 Partial Thromboplastin Time, Activated (APTT) Lab Routine Pre-op evaluation Expected: 06/26/2025, Expires: 06/26/2026 documented as of this encounter Procedures Procedure Name Priority Date/Time Associated Diagnosis Comments ECG 12-LEAD Routine 06/26/2025 12:10 PM EDT Pre-op evaluation documented in this encounter Results * ECG 12 lead (06/26/2025 12:10 PM EDT) Koko Burgess CNP - 06/26/2025 12:10 PM EDT NSR, RBBB, QT interval prolongation versus artifact, no ST segmental changes. Consistent with prior studies. Koko Pearson CNP ECG ORDERABLES Final Res ult documented in this encounter Visit Diagnoses Diagnosis Pre-op evaluation- Primary Psoriasis Other psoriasis documented in this encounter Additional Health Concerns Assessment Noted Time PHQ-9 Depression Total Score: 10 024 9:51 AM EDT documented as of this encounter Care Teams Knot Tier Relationship Specialty Start Date End Date Audrey Ayon MD [address] [place] [address] PCP - General Internal Medicine 02/01/23 documented as of this encounter
--- OUTSIDE RECORDS SUMMARY | 2025-06-26 13:53 | XMS_ITS | Encounter Summary ---
Author Organization [employer] Address [address] [place] [address] [place] [address] Care Team Providers Care Detective Supervisor Name Role Phone Audrey Ayon MD Primary Care Provider [phone] Encounter Details Date Type Department Care Team (Latest Contact Info) Description 06/02/2022 Abstract [facility] CONVERSIONS Dental, Provider, DDS Social History Tobacco Use Types Packs/Day Years Used Date Smoking Tobacco: Never Assessed Comments Unknown Sex and Gender Information Value Date Recorded Sex Assigned at Female 07/26/2022 10:40 AM EDT Legal Sex Female 10:40 AM EDT Gender Identity Female 07/26/2022 10:40 AM EDT Sexual Orientation Straight 07/26/2022 10 :40 AM EDT documented as of this encounter Plan of Treatment Not on file documented as of this encounter Visit Diagnoses Not on filedocumented in this encounter Care Teams Detective Supervisor Relationship Specialty Start Date End Date Audrey Ayon MD [address] [facility] [place] [address] PCP - General Internal Medicine 02/01/23 documented as of this encounter
--- OUTSIDE RECORDS SUMMARY | 2025-06-26 13:54 | XMS_ITS | Clinical Summary ---
Author Organization [employer] Address [address] [facility] 7t [place] [address] Care Team Providers Care Air Table Operator Name Role Phone Audrey Ayon MD Primary Care Provider [phone] Allergies Active Allergy Reactions Criticality Noted Date Comments Ampicillin Hives Low 03/13/2024 Acetaminophen Low 03/13/2024 Upset stomach Medications triamcinolone (Kenalog) 0.1 % creamIndicatio ns:Psoriasis Apply topically if needed in the morning and at bedtime (pain and swelling). 30 g 2 06/26/20 25 Active meloxicam (Mobic) 7.5 MG tablet Take 1 tablet (7.5 mg) by mouth 2 times daily. 60 tablet 11 03/20/20 25 025 Discontinued Diclofenac Sodium (Voltaren) 1 % gel Use topical BID 100 g 3 03/20/20 25 025 Discontinued cyclobenzaprin e (Flexeril) 10 MG tablet TAKE 1 TABLET BY MOUTH THREE TIMES DAILY FOR 10 DAYS 30 tablet 04/01/20 25 025 Discontinued Active Problems Problem Noted Date Diagnosed Date Calcific tendinitis of right shoulder 06/26/2025 COVID-19 06/26/2025 Rotator cuff insufficiency of right shoulder 09/2024 Resolved Problems Problem Noted Date Diagnosed Date Resolved Date Anxiety 01/27/2023 06/26/2025 Mood disorder 01/27/2023 06/26/2025 Encounters Date Type Department Care Team Description 06/26/2025 10:45 AM EDT Office Visit [facility] [address] [place] [address] Koko Pearson CNP Pre-op evaluation (Primary Dx); Psoriasis 06/26/2025 Travel 06/26/2025 Telephone [facility] MED & PEDS [address] [place] [address] Audrey Ayon MD chart prep 06/19/2025 Travel 06/11/2025 Telephone [facility] MED & PEDS [address] [place] [address] Audrey Ayon MD Pre-op Exam 05/05/2025 Orders Only [facility] External Provider, [facility] 04/05/2025 Telephone [facility] MED & PEDS [address] [place] [address] Audrey Ayon MD Nurse Triage 04/05/2025 Telephone [facility] MED & PEDS [address] [place] [address] Audrey Ayon MD Medication Question 03/31/2025 Refill [facility] & PEDS [address] [place] [address] Vidhya Bush MD from Last 3 Months Social History Tobacco [...] 20 06/26/2025 10:46 AM EDT Oxygen Saturation 97% 03/20/2025 8:52 AM EDT Inhaled Oxygen Concentration - - Weight 75.3 kg (166 lb) 06/26/2025 10:46 AM EDT Height 160 cm (5' 3 ) 06/26/2025 10:46 AM EDT Body Mass Index 29.41 06/26/2025 10:46 AM EDT Plan of Treatment Health Maintenance Due Date Last Done Comments CT Colonography 1968 Colonoscopy 1968 Dental Prophylaxis 1968 FIT 1968 FOBT 1968 Sigmoidoscopy 1968 DTaP/Tdap/Td Vaccines (1 - Tdap) 01/08/1987 Hepatitis B Vaccines (1 of 3 - 19+ 3-dose series) 01/08/1987 Pneumococcal Vaccine: 50+ Years (1 of 1 - PCV) 01/08/2018 Dental Oral Exam 12/01/2022 06/02/2022 Dental X-Ray: Bitewings 06/03/2023 06/02/2022 Depression Monitoring 09/12/2024 03/13/2024, 024 Dental X-Ray: Full Mouth 06/03/2025 06/02/2022 Colorectal Cancer Screening 02/10/2026 FIT DNA/Cologuard 02/10/2026 Mammogram 02/20/2026 02/21/2024 Disability Screening 03/01/2026 03/01/2025 Tobacco Screening 03/05/2026 03/05/2025 Alcohol/Substance Use Screening 06/26/2026 06/26/2025 SDOH Screening 06/26/2026 06/26/2025 Cervical Cancer Screening 02/02/2028 HPV/Cotest 02/02/2028 02/01/2023 Pap Smear 02/02/2028 02/01/2023 RSV Patients and Patients Aged 60 years or older (1 - 1-dose 75+ series) 01/08/2043 HIV Screening Completed 01/28/2023 Hepatitis C Screening Completed 01/28/2023 Zoster Vaccines Completed 06/25/2024, 02/13/2024 COVID-19 Vaccine Completed 06/17/2025, , 07/10/2023, Additional history exists Influenza Vaccine Completed 06/17/2025, , 06/15/2022 HIB Vaccines Aged Out No longer eligi [...] this topic Meningococcal Vaccine Aged Out No carsisa bunny eligible based on patient's age to complete this topic RSV under 20 months Aged Out No longe r eligible based on patient's age to complete this topic Rotavirus Vaccines Aged Out No longer eligible based on patient's age to complete this topic Procedures Procedure Name Priority Date/Time Associated Diagnosis Comments ECG 12-LEAD Routine 06/26/2025 12:10 PM EDT Pre-op evaluation MR SHOULDER WO CONTRAST RIGHT Routine 05/07/2025 [...] Recently Relevant to Health Maintenance Results * ECG 12 lead (06/26/2025 12:10 PM EDT) Koko Burgess CNP - 06/26/2025 12:10 PM EDT NSR, RBBB, QT interval prolongation versus artifact, no ST segmental changes. Consistent with prior studies. [facility] ECG ORDERABLES Final Res ult * MR Shoulder w/o Contrast Right (05/07/2025 6:50 PM EDT) Anatomical Region Laterality Modality Upper Extremities, Shoulder Right Magn etic Resonance 05/07/2025 6:50 PM EDT Narrative 05/07/2025 6:51 PM EDT [place] [address] Magnetic Resonance Report Signed Patient: Graciela Minaya MR#: [id number] 0 : 1970 Acct:[id number] Age/Sex: 55 / F ADM Date: 05/05/25 Loc: HO.MRI Attending Dr: Magdiel Field MD Ordering Physician: Magdiel Field MD Date of Service: 05/05/25 Procedure(s): MR shoulder RT wo con Accession Number(s): [id number] cc: Audrey Ayon MD; Magdiel Field MD [...] in OV> 05/07/251850 DD/ 49 TD/TT: 05/07/251849 Head Coach: Procedure Note 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, Image - 05/07/2025 [place] [address] Magnetic Resonance Report Signed Patient: Graciela Minaya#: [id number] 0 : 1970Acct:[id number] Age/Sex: 55 / FADM Date: 05/05/25 Loc: HO.MRI Attending Dr: Magdiel Field MD Ordering Physician: Magdiel Field MD Date of Service: 05/05/25 Procedure(s): MR shoulder RT wo con Accession Number(s): [id number] cc: Audrey Ayon MD; Magdiel Field MD [...] in OV> 05/07/251850 DD/ 49 TD/TT: 05/07/251849 Head Coach: [facility] External Provider IMG MRI PROCEDURES Final Result * Mammography (02/21/2024) Mammogram BIRADS 1 Normal, Abnormal, BIRADS 1 , BIRADS 2 Anatomical Region Laterality Modality Other Audrey Ayon MD HEALTH MAINTENANCE Final Resu lt * Image-Guided Pap with Age-Based Screening??with CT/NG,??Trichomonas (02/01/2023 9:45 AM EDT) Comment [facility] Comment: This order for age-based cervical cancer and STI screening follows ACOG guidelines(PB 168, 140, GIQ150). See individual assays for performing site location. Clinical Information: Postmenopausal [facility] LMP: PM [facility] Prev. PAP: NONE GIVEN [facility] Prev. BX: NONE GIVEN [facility] SOURCE: Cervix [facility] [place] [facility] Statement Of Adequacy: [facility] [place] [facility] Comment: Satisfactory for evaluation. Endocervical/transformation zone component present. Interpretation/Re sult: Negative for intraepithelial lesion or malignancy. [employer] COMMENT: This Pap test has been evaluated with computer assisted technology. [facility] [place] [employer] Senior It Specialist: Nick ace [employer] [place] [employer] Comment: WAC, CT(ASCP) CT screening location: [place] [address] (Always Message) [facility] [employer] [place] [employer] Comment: EXPLANATORY NOTE: The Pap is a [...] HPV nRNA E6/E7 Not Detected Not Detected [employer] Comment: Methodology: Curator Of Collections-Mediated Amplification This assay detects E6/E7 viral messenger RNA (mRNA) from 14 high-risk HPV types (16,18,31,33,35,39,45,51,52,56,58,59,66,68). Cervical sources are required for HPV testing. If a vaginal source from a patient who has had a total hysterectomy with removal of cervix was submitted, please contact the testing laboratory for alternative testing options. For additional information, please refer to http://[employer].GPal/faq/NUZ968j8 (This link if provided for information/ educational purposes only.) Chlamydia trachomatis RNA, TMA, Urogenital NOT DETECTED NOT DETECTED [employer] Neisseria gonorrhoeae RNA, TMA, Urogenital NOT DETECTED NOT DETECTED [employer] (Always Message) [employer] Comment: The analytical performance characteristics of this assay, when used to test SurePath(TM) specimens have been determined by [facility]. The modifications have not been cleared or approved by the FDA. This assay has been validated pursuant to the CLIA regulations and is used for clinical purposes. For additional information, please refer to https://[employer].GPal/faq/EVG915 (This link is being provided for information/ educational purposes only.) Trichomonas vaginalis, QL, TMA, PAP Vial NOT DETECTED NOT DETECTED [employer] Comment: The analytical performance characteristics of this assay have been determined by [facility]. The modifications have not been cleared or approved by the FDA. This assay has been validated pursuant to the CLIA regulations and is used for clinical purposes. For additional information, please refer to http://education.GPal/ faq/Trichomonastma (This link is being provided for information/ educational purposes only.) Cervix 02/01/2023 9:45 AM EDT 02/02/2023 9:43 AM EDT us Audrey Ayon MD LAB CYTOLOGY ORDERABLES Final Result Performing Organization Address City/[facility] de Phone Number [facility] [address], [place] [address] [facility] [address] [place] [address] * HIV-1 RNA, Quantitative, Real-Time PCR with Reflex to Genotype (RTI, PI, Integrase) (01/28/2023 8:37 AM EDT) Pathologist [facility] HIV 1 RNA, QN PCR NOT DETECTED copies/mL [facility], HIV 1 RNA, QN PCR NOT DETECTED Log copies/mL [facility], Comment: REFERENCE RANGE: NOT DETECTED copies/mL NOT DETECTED Log copies/mL This test was performed using Real-Time Polymerase Chain Reaction. Reportable range is 20 to 10,000,000 copies/mL (1.30-7.00 Log copies/mL). 01/28/2023 8:37 AM EDT 01/28/2023 8:38 AM EDT Narrative [facility] - 01/30/2023 10:11 PM EDT FASTING:YES FASTING: YES us Audrey Ayon MD LAB BLOOD ORDERABLES Final Re sult [facility] [address], [place] [address] [facility], [address] [place] [address] * Hepatitis Panel, General (01/28/2023 8:37 AM EDT) Hepatitis A Antibody Total NON-REACT MAMADOU NON-REACT MAMADOU [facility] [place] [facility] Comment: For additional information, please refer to http://[employer].GPal/faq/WLH569 (This link is being provided for informational/ educational purposes only.) Hepatitis B Surface Antibody QL NON-REACT MAMADOU NON-REACT MAMADOU [facility] [place] [facility] Hepatitis B Surface Ag NON-REACT MAMADOU NON-REACT MAMADOU [facility] [place] [employer] Hepatitis B Core Antibody Total NON-REACT MAMADOU NON-REACT MAMADOU [facility] [place] [facility] Hepatitis C Antibody NON-REACT MAMADOU NON-REACT MAMADOU [facility] [place] [facility] Index 0.06 <1.00 [facility] [place] [facility] Comment: HCV antibody was non-reactive. There is no laboratory evidence of HCV infection. In most cases, no further action is required. However, if recent HCV exposure is suspected, a test for HCV RNA (test code 13529) is suggested. For additional information please refer to http://[employer].GPal/faq/NFT96c4 (This link is being provided for informational/ educational purposes only.) 01/28/2023 8:37 AM EDT 01/28/2023 8:38 AM EDT Narrative [facility] - 01/30/2023 10:11 PM EDT FASTING:YES FASTING: YES Audrey Ayon MD LAB BLOOD ORDERABLES Final Re sult [facility] [address], [place] [address] [employer] [address] [place] [address] from Last 3 Months or Most Recently Relevant to Health Maintenance Insurance [address] [facility] [address] [place] C3 [facility]ICA[facility] STAND ADULT [address] [facility] [address] [place] [address] [address] [facility] [place] [address] [address] [facility] [address] [place] Care Teams Air Table Operator Relationship Specialty Start Date End Date Audrey Ayon MD [address] [place] [address] PCP - General Internal Medicine 02/01/23
--- OUTSIDE RECORDS SUMMARY | 2025-06-26 13:54 | XMS_ITS | Encounter Summary ---
Author Organization [employer] Address [address] [place] [address] 7 [place] [address] Care Team Providers Care Patient Account Liaison Name Role Phone Audrey Ayon MD Primary Care Provider [phone] Reason for Visit * Reason Onset Date Comments chart prep 06/26/2025 Encounter Details Date Type Department Care Team ([facility] st Contact Info) Description 06/26/2025 Telephone [facility] MED & PEDS [address] [place] [address] Audrey Ayon MD [address] [place] [address] chart prep Social History Tobacco Use Types Packs/Day Years [...] encounter Miscellaneous Notes * Telephone Encounter - Fernanda Chan MA - 06/26/2025 8:28 AM EDT Chart Prep Labs: not applicable Images: not applicable Referrals: not applicable Vaccines due: Covid, Flu, PCV20, Tdap, Hep B, Td, and DTAP,Zoster Screenings: mammogram? Overdue care gaps: SBIRT, PHQ-9, and IWONA-7 documented in this encounter Plan of Treatment Not on file documented as of this encounter Visit Diagnoses Not on filedocumented in this encounter Additional Health Concerns Assessment Noted Time PHQ-9 Depression Total Score: 10 024 9:51 AM EDT documented as of this encounter Care Teams Patient Account Liaison Relationship Specialty Start Date End Date Audrey Ayon MD [address] [facility] [place] [address] PCP - General Internal Medicine 02/01/23 documented as of this encounter
--- OUTSIDE RECORDS SUMMARY | 2025-06-26 13:54 | XMS_ITS | Encounter Summary ---
Author Organization [employer] Address [address] [place] [address] Care Team Providers Care Cow Washer Name Role Phone Audrey Ayon MD Primary Care Provider [phone] Encounter Details Date Type Department Care Team (Latest Contact Info) Description 06/26/2025 Travel Social History Tobacco Use Types Packs/Day Years [...] AM EDT documented as of this encounter Functional Status * Over the [...] Chan [place] documented as of this encounter Plan of Treatment Not on file documented as of this encounter Visit Diagnoses Not on filedocumented in this encounter Additional Health Concerns Assessment Noted Time PHQ-9 Depression Total Score: 10 024 9:51 AM EDT documented as of this encounter Care Teams Cow Washer Relationship Specialty Start Date End Date Audrey Ayon MD [address] [facility] [address] PCP - General Internal Medicine 02/01/23 documented as of this encounter
[2025-06-26 14:04] LABS: MANUAL DIFF FLAG NO
[2025-06-26 14:08] LABS: Hematocrit 43.3 % (37.0-47.0); Hemoglobin 14.1 g/dl (12.0-16.0); Imm Gran Abs Auto 0.04 X10*3/uL (0.00-0.03); Imm Gran Pct Auto 0.5 % (0.0-0.4); Lymphocytes Absolute Auto 2.7 X10*3/uL (1.2-4.9); Mean Corpuscular HGB Conc 32.6 g/dl (31.0-35.0); Mean Corpuscular Hemoglobin 27.9 pg (27.0-33.0); Mean Corpuscular Volume 85.6 fL (80.0-98.0); NRBC Abs Auto 0.000 X10*3/uL (0.0-0.012); NRBC Pct Auto 0.0 /100WBC (0.0-0.2); Platelet Count 359 X10*3/uL (160-400); Red Blood Count 5.06 X10*6/uL (4.20-5.50); White Blood Count 8.7 X10*3/uL (4.8-10.8)
[2025-06-26 14:11] LABS: INTERNATIONAL NORM RATIO 1.1 (0.9-1.1); Prothrombin Time 12.7 SEC (10.9-12.4)
[2025-06-26 14:14] LABS: Partial Thromboplastin Time 34.2 SEC (26.7-34.1)
[2025-06-26 14:29] LABS: Alanine Aminotransferase 18 U/L (0-31); Albumin Level 4.7 g/dL (3.5-5.0); Alkaline Phosphatase 83 U/L (39-117); Anion Gap 10 (12-20); Aspartate Amino Transferase 21 U/L (5-31); Blood Urea Nitrogen 20 mg/dL (9-16); Calcium 10.2 mg/dL (8.4-10.2); Carbon Dioxide 25 mmol/L (22-29); Chloride 110 mmol/L (96-108); Estimated Glomerular Filt Rate > 60; Potassium 3.8 mmol/L (3.3-5.1); Sodium 141 mmol/L (135-145); Total Protein 7.6 g/dL (6.5-8.0)
== END 2025-06-26 12:34 | disposition home or self-care (01) ==
LOC: HO.CHCLDS 12:33
DX: Z01.818 Encounter for other preprocedural examination (principal)
CPT/HCPCS: 36415; 80053; 85025; 85610; 85730

== ENCOUNTER 2025-07-12 08:15 | Day surgery (SDC) | payer MEDICAID, SELFPAY ==
[2025-07-09 13:19] VITALS: BMI 29.4
[2025-07-12] VITALS (11 sets, daily range): BP systolic 99–152; BP diastolic 57–93; PULSE 65–87; RESP 10–19; TEMP 36.3–36.5; O2SAT 94–99
[2025-07-12] MEDS: Lactated Ringers 1,000 ML 100 ML IVCONT (08:49)
--- NOTE | 2025-07-12 09:50 | HO.ANESPROP2 ---
Documented by User: Lindsey Kay NP 07/09/25 14:26 HPI - Anesthesia Eval Consult details Narrative: 55yo F for Right Shoulder Arthroscopy,distal clavicle excision,acromioplasty,capsular release,manipulation PMFSH Active Problems Active Problems: All Active Problems Impingement syndrome of left shoulder (Acute) Rotator cuff insufficiency of right shoulder (Acute) COVID-19 (Acute) Past Medical History Medical History (Updated 07/09/25 @ 13:18 by Angela Stone RN) Arthritis Chronic cough Rotator cuff insufficiency of right shoulder Surgical History Surgical History (Updated 07/09/25 @ 13:18 by Angela Stone RN) Hx of tubal ligation Social History Social History Are you a primary manager wound care to a significant other at home: No Do you presently have visiting nurse or other home services: No Alcohol intake: never Patient Tobacco Use Status: Never used Tobacco Use of substances other than those prescribed or required for medical reasons: No Have you been hit, kicked, punched, or otherwise hurt by someone within the past year? If so, by whom?: No Spiritual Healthcare Practices: no Pentecostalism Healthcare Practices: no Cultural Healthcare Practices: no Are you DNR?: No Advance Directives: No (states S.O. 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 Meds Allergies Allergy/AdvReac Type Severity Reaction Status Date / Time ampicillin Allergy Intermediate Hives Verified 07/09/25 13:08 Home Medications ?Medication ?Instructions ?Recorded ?Confirmed ?Last Taken ?Type multivitamin 1 tab PO QAM 07/09/25 07/12/25 07/11/25 08:00 History Exam Height,Weight and Vital Signs: Height 5 ft 3 in Weight 75.296 kg Pertinent Lab Results Pertinent Lab Results: Laboratory Tests 06/26/25 12:34 WBC 8.7 Hgb 14.1 Hct 43.3 Plt Count 359 Sodium 141 Potassium 3.8 Chloride 110 H Carbon Dioxide 25 BUN 20 H Creatinine 0.74 Narrative Narrative: EKG 01/2025 Vent. Rate : 76 BPM Atrial Rate : 76 BPM P-R Int : 160 ms QRS Dur : 100 ms QT Int : 416 ms P-R-T Axes : 44 -25 15 degrees QTcB Int : 468 ms Normal sinus rhythm Incomplete right bundle branch block Minimal voltage criteria for LVH, may be normal variant ( R in aVL ) Nonspecific ST abnormality Abnormal ECG No previous ECGs available Assessment and Plan Assessment Anesthesia Assessment: Chart Reviewed Documented by User: Cindy Singh, DO 07/12/25 10:43 PMFSH Past Medical History Medical History (Updated 07/09/25 @ 13:18 by Angela Stone RN) Arthritis Chronic cough Rotator cuff insufficiency of right shoulder Family History Family history of problems with anesthesia: No Surgical History Surgical History (Updated 07/09/25 @ 13:18 by Angela Stone RN) Hx of tubal ligation History of Problems with Anesthesia: No Social History Social History Are you a primary manager wound care to a significant other at home: No Do you presently have visiting nurse or other home services: No Alcohol intake: never Patient Tobacco Use Status: Never used Tobacco Use of substances other than those prescribed or required for medical reasons: No Have you been hit, kicked, punched, or otherwise hurt by someone within the past year? If so, by whom?: No Spiritual Healthcare Practices: no Pentecostalism Healthcare Practices: no Cultural Healthcare Practices: no Are you DNR?: No Advance Directives: No (states S.O. 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 Meds Allergies Allergy/AdvReac Type Severity Reaction Status Date / Time ampicillin Allergy Intermediate Hives Verified 07/09/25 13:08 Home Medications ?Medication ?Instructions ?Recorded ?Confirmed ?Last Taken ?Type multivitamin 1 tab PO QAM 07/09/25 07/12/25 07/11/25 08:00 History Exam Exam Date and Time: 07/12/25 0950 Height,Weight and Vital Signs: Height 5 ft 3 in Weight 75.296 kg Vital Signs Temperature 97.7 F 07/12/25 08:47 Pulse Rate 87 07/12/25 08:47 Respiratory Rate 18 07/12/25 08:47 Blood Pressure 152/93 H 07/12/25 08:47 Pulse Oximetry 96 07/12/25 08:47 Oxygen Delivery Method Room Air 07/12/25 08:47 Temperature 97.7 F 07/12/25 08:47 Pulse Rate 87 07/12/25 08:47 Respiratory Rate 18 07/12/25 08:47 Blood Pressure 152/93 H 07/12/25 08:47 Pulse Oximetry 96 07/12/25 08:47 Oxygen Delivery Method Room Air 07/12/25 08:47 Airway Mallampati Class: II TM Dist: >3cm Neck ROM: Full Partial: Lower Loose/Missing/Broken Teeth: Yes (several missing teeth top jaw) Heart: S1S2 Lungs: CTAB Assessment and Plan Assessment Anesthesia Assessment: Anesthesia Plan Discussed and Chart Reviewed Final Anesthetic Review Family History of Problems with Anesthesia: No History of Problems with Anesthesia: No NPO: Yes ASA Class: II Final Preanesthetic Review: No Changes in Pt Med Stat, Meds/Allgs Chart Reviewed, Consent Obtained/Reviewed and Anes Risks/Benef Reviewed Patient Risk: Low Procedure Risk: Intermediate Anesthetic Plan Anesthetic Plan: GA, Regional Block (right brachial plexus block) and Agree w/ Assess. and Plan Disposition: Standard PACU
--- NOTE | 2025-07-12 11:56 | P.BOP_ITS ---
Brief Operative Note Date of Service: 07/12/25 Pre-op diagnosis: Right shoulder impingement syndrome, right shoulder acromioclavicular joint arthritis, right shoulder adhesive capsulitis Post-op diagnosis: same Procedure: Right shoulder arthroscopic distal clavicle excision, right shoulder arthroscopic acromioplasty, right shoulder arthroscopic anterior capsular release, right shoulder manipulation under anesthesia Implants: None Surgeon: Magdiel Field MD Anesthesia: GETA and regional Was an Intravenous Therapy Nurse used for this Procedure?: No Estimated blood loss (mL): 10 Pathology: none sent Condition: stable Disposition: PACU
--- NOTE | 2025-07-12 11:57 | P.OP_ITS ---
Operative Note Operative Note Date of Service: 07/12/25 Narrative: After the patient was identified as Graciela Minaya and her right shoulder was initialed by myself the patient was brought to the holding area where a right shoulder interscalene regional block was performed by the anesthesiologist in routine fashion. The patient was then brought to the operating room where general anesthesia was induced by the anesthesiologist in routine fashion. Because of the patient's allergy to penicillin she was given 900 mg of IV clindamycin preoperatively for infection prophylaxis. Examination under anesthesia of the patient's right shoulder showed decreased passive range of motion when compared to the left shoulder. The patient's right shoulder had passive forward flexion to 130 degrees compared to 170 degrees, external rotation to 40 degrees compared to 70 degrees, and internal rotation to 50 degrees compared to 60 degrees. The patient was gently positioned in the beach chair position with all bony prominences well padded. The patient's right shoulder region and upper extremity were prepped and draped in sterile fashion. A formal time-out was completed. A #11 scalpel blade was used to make a posterior portal 2 cm inferior and 1 cm medial to the posterolateral corner of t he acromion. Blunt trocar technique was used to enter the glenohumeral joint in routine fashion. An anterior portal was made just lateral to the coracoid process after proper positioning was confirmed using a spinal needle. Diagnostic arthroscopy showed minimal degenerative changes of the glenoid and humeral head articular surfaces. There was no evidence of rotator cuff tearing. There was no evidence of injury to the biceps tendon or its insertion onto the glenoid. There was inflammation of the anterior joint capsule consistent with adhesive capsulitis. The ArthroCare Wand was then used to perform an anterior capsular release between the inferior border of the biceps tendon and the superior border of the subscapularis tendon. The arthroscope was then placed from the posterior portal into the subacromial space. A lateral portal was made 2 fingerbreadths lateral to the anterior lateral corner of the acromion. The ArthroCare Wand was used to ablate soft tissues along the undersurface of the acromion as well as to excise the coracoacromial ligament. There was a sharp spur along the undersurface of the acromion which was removed using the hooded bur. The arthroscope was then placed into the lateral portal and the acromioplasty was completed with the bur in the posterior portal using the posterior aspect of the acromion as a cutting block. The ArthroCare Wand was then brought in through the anterior portal and was used to ablate soft tissues along the acromioclavicular joint and distal clavicle. The posterior and superior ligamentous structures were left intact. A distal clavicle excision of 8 mm was performed using the fluted bur. Any remaining bursal tissue was removed using the arthroscopic shaver. The subacromial space was irrigated and then drained. All arthroscopic instruments were removed. A gentle manipulation under anesthesia was then performed. Full passive range of motion was easily attained. The 3 portals were closed with 3-0 nylon interrupted suture. The subacromial space was injected with Marcaine. Dry sterile dressing was placed over all incisions. The patient's right upper extremity was placed into a sling. The patient was awoken and extubated in the operating room. The patient was transferred to the recovery room in stable condition.
== END 2025-07-12 13:51 | disposition home or self-care (01) ==
PROVIDERS: PCP Pediatrics; Visit Provider Orthopaedic Surgery
PROC: (CPT 29805; principal; 2025-07-12 10:30)
DX: M75.41 Impingement syndrome of right shoulder (principal); M75.01 Adhesive capsulitis of right shoulder; M19.011 Primary osteoarthritis, right shoulder; M25.511 Pain in right shoulder; M25.611 Stiffness of right shoulder, not elsewhere classified; Z88.0 Allergy status to penicillin; Z88.1 Allergy status to other antibiotic agents
CPT/HCPCS: 29824; 29825; 29826; J0131; J0165; J0736; J1100; J1630; J1920; J2003; J2250; J2371; J2405; J2704; J2795; J3010

== ENCOUNTER → 2025-07-12 08:15 | Outpatient (BNV) | payer MEDICAID, SELFPAY | PROVIDERS: PCP Pediatrics; Visit Provider Orthopaedic Surgery | DX: M75.41 Impingement syndrome of right shoulder (principal); M19.011 Primary osteoarthritis, right shoulder; M75.01 Adhesive capsulitis of right shoulder | CPT/HCPCS: 29824; 29826 ==

== ENCOUNTER 2025-07-25 13:39 | Outpatient (AMB) | payer MEDICAID, SELFPAY ==
--- NOTE | 2025-07-25 14:03 | A.OFFVIS_ITS ---
Intake Visit Reasons: PO-Right Shld 07/12/25 Intake Note: Graciela is a 55 year old female who presents today post operatively after undergoing a right shoulder arthroscopy, performed by Dr. Field on 07/12/25. Patient reports that she continues to have discomfort after surgery. Her current pain level is a 7 out of 10, states at times her pain level becomes a 10 out of 10. She discontinue use of oxycodone due to nausea and upset stomach. Allergies ampicillin Allergy (Intermediate, Verified 07/25/25 14:05) Hives HPI HPI PO-Right Shld 07/12/25 DR: Details: 55-year-old female returns to the office today status post right shoulder arthroscopy on 07/12/[address] Field. She is doing well but has some discomfort in the right shoulder which extends into the deltoid region. She has been doing some home exercises which involves stretching. She is taking ibuprofen and Dilaudid for pain. 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 No heavy Lifting. Review of Systems Const All systems reviewed & are unremarkable except as noted in HPI and below Physical Exam Extrem Other: Right shoulder incision is clean dry and intact. No surrounding erythema or drainage. Neurovascularly intact. Results Reviewed Results Reviewed: Date of Service: 07/12/25 Pre-op diagnosis: Right shoulder impingement syndrome, right shoulder acromioclavicular joint arthritis, right shoulder adhesive capsulitis Post-op diagnosis: same Procedure: Right shoulder arthroscopic distal clavicle excision, right shoulder arthroscopic acromioplasty, right shoulder arthroscopic anterior capsular release, right shoulder manipulation under anesthesia Implants: None Surgeon: Magdiel Field MD Assessment & Plan Assessment & Plan (1) Rotator cuff insufficiency of right shoulder: Code(s): M25.311 - Other instability, right shoulder Category: Medical (2) Impingement syndrome of left shoulder: Code(s): M75.42 - Impingement syndrome of left shoulder Category: Medical Plan Sutures removed today Steri-Strips applied. I offered a course of physical therapy to work on motion, strength and conditioning exercises. An order was placed in the patient was advised to make an appointment. The patient will refrain from repetitive lifting pushing pulling carrying activities for the next 4-6 weeks, at which point they will return to see Dr. Field, sooner if needed. Medications: Refilled hydromorphone (Dilaudid) Partial Fill upon patient request. 2 mg PO Q6H PRN 30 tabs 0RF pain Coding Level of Care Code Global (94253) Diagnoses Rotator cuff insufficiency of right shoulder M25.311 Impingement syndrome of left shoulder M75.42
--- OUTSIDE RECORDS SUMMARY | 2025-07-25 16:38 | XMS_ITS | Encounter Summary ---
Author Organization [employer] Address [address] [place] [address] [place] [address] Care Team Providers Care Snap Shearer Name Role Phone Audrey Ayon MD Primary Care Provider Encounter Details Date Type Department Care Team (Latest Contact Info) Description 06/02/2022 Abstract [facility] CONVERSIONS Dental, Provider, DDS Social [...] Care Team (Late st Contact Info) Description 08/01/2025 9:00 AM EST Office Visit [facility] PEDS [address] [place] [address] Audrey Ayon MD [address] [place] [address] documented as of this encounter Visit Diagnoses Not on filedocumented in this encounter Care Teams Snap Shearer Relationship Specialty Start Date End Date Audrey Ayon MD [address] [place] [address] PCP - General Internal Medicine 02/01/23 documented as of this encounter
--- OUTSIDE RECORDS SUMMARY | 2025-07-25 16:38 | XMS_ITS | Encounter Summary ---
Author Organization [employer] Address [address] [place] [address] Care Team Providers Care Vehicle Upholsterer Name Role Phone Audrey Ayon MD Primary Care Provider [phone] Encounter Details Date Type Department Care Team (Latest Contact Info) Description 07/25/2025 Travel Social History Tobacco Use Types Packs/Day [...] Description 08/01/2025 9:00 AM EST Office Visit [facility] MED [facility] PEDS [address] [place] [address] Audrey Ayon MD [address] [place] [address] documented as of this encounter Visit Diagnoses Not on filedocumented in this encounter Additional Health Concerns Assessment Noted Time PHQ-9 Depression Total Score: 10 024 9:51 AM EDT documented as of this encounter Care Teams Vehicle Upholsterer Relationship Specialty Start Date End Date Audrey Ayon MD [address] [place] [address] PCP - General Internal Medicine 02/01/23 documented as of this encounter
--- OUTSIDE RECORDS SUMMARY | 2025-07-25 16:38 | XMS_ITS | Clinical Summary ---
Author Organization [employer] Address [address] [place] [address] Care Team Providers Care Occupational Therapy Director Name Role Phone Audrey Ayon MD Primary Care Provider [phone] Allergies Active Allergy Reactions Criticality Noted Date [...] Encounters Date Type Department Care Team Description 07/25/2025 Travel 06/28/2025 Orders Only [facility] [address] [place] [address] Koko Pearson CNP Pre-op evaluation (Primary Dx) 06/26/2025 10:45 AM EDT Office Visit [facility] [address] [facility] [place] [address] Koko Pearson CNP Pre-op evaluation (Primary Dx); Psoriasis 06/26/2025 Travel 06/26/2025 Telephone [facility] [address] [facility] [place] [address] Audrey Ayon MD chart prep 06/19/2025 Travel 06/11/2025 Telephone [facility] [address] [facility] [place] [address] Audrey Ayon MD Pre-op Exam 05/05/2025 Orders Only [facility] External Provider, [facility] from Last 3 Months Social History Tobacco [...] 06/26/2025 10:46 AM EDT Plan of Treatment Upcoming Encounters Date Type Department Care Team (Late st Contact Info) Description 08/01/2025 9:00 AM EST Office Visit [facility] [address] [place] [address] Audrey Ayon MD [address] [place] [address] Health Maintenance Due Date Last Done Comments [...] Procedure Name Priority Date/Time Associated Diagnosis Comments APTT Routine 06/26/2025 12:34 PM EDT Pre-op evaluation PROTHROMBIN TIME-INR Routine 06/26/2025 12:34 PM EDT Pre-op evaluation COMPREHENSIVE METABOLIC PANEL Routine 06/26/2025 12:34 PM EDT Pre-op evaluation CBC WITH AUTO DIFFERENTIAL Routine 06/26/2025 12:34 PM EDT Pre-op evaluation ECG 12-LEAD Routine 06/26/2025 12:10 PM EDT [...] Recently Relevant to Health Maintenance Results * (ABNORMAL) CBC auto differential (06/26/2025 12:34 PM EDT) White Blood Count 8.7 4.8 - 10.8 X10*3/uL [facility] Red Blood Count 5.06 4.20 - 5.50 X10*6/uL [facility] Hemoglobin 14.1 12.0 - 16.0 g/dl [facility] Hematocrit 43.3 37.0 - 47.0 % [facility] Mean Corpuscular Volume 85.6 80.0 - 98.0 fL [facility] Mean Corpuscular Hemoglobin 27.9 27.0 - 33.0 pg [facility] Mean Corpuscular HGB Conc 32.6 31.0 - 35.0 g/dl [facility] Red Cell Distribution Width 12.6 11.0 - 16.0 % [facility] Platelet Count 359 160 - 400 X10*3/uL [facility] Mean Platelet Volume 9.9 9.4 - 12.3 fL [facility] Neutrophils Percent Auto 59.7 45 - 73 % [facility] Imm Gran Pct Auto 0.5(H) 0.0 - 0.4 % [facility] Lymphocytes Percent Auto 31.0 20 - 40 % [facility] Monocytes Percent Auto 5.6 2 - 11 % [facility] Eosinophils Percent Auto 2.2 0 - 4 % [facility] Basophils Percent Auto 1.0 0 - 2 % [facility] NRBC Pct Auto 0.0 0.0 - 0.2 /100WBC [facility] Neutrophils Absolute Auto 5.2 2.0 - 8.3 x10*3/uL [facility] Imm Gran Abs Auto 0.04(H) 0.00 - 0.03 X10*3/uL [facility] Lymphocytes Absolute Auto 2.7 1.2 - 4.9 X10*3/uL [facility] Monocytes Absolute Auto 0.5 0.1 - 1.2 X10*3/uL [facility] Eosinophils Absolute Auto 0.2 0.0 - 0.4 X10*3/uL [facility] Basophils Absolute Auto 0.1 0.0 - 0.2 X10*3/uL [facility] NRBC Abs Auto 0.000 0.0 - 0.012 X10*3/uL [facility] Blood Venous blood specimen / Unknown 06/26/2025 12:34 PM EDT 06/26/2025 1:58 PM EDT Koko Pearson [employer] LAB BLOOD ORDERABLES Vanessa l Result [facility] [address] [place] [address] [phone] * (ABNORMAL) Partial Thromboplastin Time, Activated (APTT) (06/26/2025 12:34 PM EDT) Partial Thromboplastin Time 34.2(H) 26.7 - 34.1 SEC [facility] Blood Venous blood specimen / Unknown 06/26/2025 12:34 PM EDT 06/26/2025 1:58 PM EDT [facility] LAB BLOOD ORDERABLES Vanessa l Result Performing Organization Address [facility] Co de Phone Number [facility] [address] [place] [phone] * (ABNORMAL) Prothrombin Time-INR (06/26/2025 12:34 PM EDT) [facility] Prothrombin Time 12.7(H) 10.9 - 12.4 SEC [facility] INTERNATIONAL NORM RATIO 1.1 0.9 - 1.1 [facility] Comment:INTERNATIONAL NORMAL IZED RATIO (INR) REFERENCE RANGES Reference RangeFor patients not on anticoagulant therapy: 0.9 - 1.1INR ranges for oral anticoagulanttherapy:For prevention and treatment of venous thrombosis and pulmonary embolism: 2.0 - 3.0For acute myocardial infarction with aspirin therapy: 2.0 - 3.0For acute myocardial infarction without aspirin therapy: 3.0 - 4.0For patients with mechanical prosthetic heart valves: 2.5 - 3.5 Blood Venous blood specimen / Unknown 06/26/2025 12:34 PM EDT 06/26/2025 1:58 PM EDT [facility] LAB BLOOD ORDERABLES Vanessa l Result Performing Organization Address [facility] Co de Phone Number [facility] [address] [place] [phone] * (ABNORMAL) Comprehensive Metabolic Panel (06/26/2025 12:34 PM EDT) Pathologist [facility] Sodium 141 135 - 145 mmol/L [facility] Potassium 3.8 3.3 - 5.1 mmol/L [facility] Chloride 110(H) 96 - 108 mmol/L [facility] Carbon Dioxide 25 22 - 29 mmol/L [facility] Anion Gap 10(L) 12 - 20 [facility] Urea Nitrogen (BUN) 20(H) 9 - 16 mg/dL [facility] Creatinine, Serum 0.74 0.5 - 1.4 mg/dL [facility] Estimated Glomerular Filt Rate >60 [facility] Comment:Chronic Kidney Disea se: Estimated GFR < 60 mL/min/1.90o7Fsozxn Kidney Disease: Estimated GFR < 15 mL/min/1.73m2 Glucose 106 60 - 115 mg/dL [facility] Calcium 10.2 8.4 - 10.2 mg/dL [facility] Bilirubin, Total 0.5 0.0 - 1.0 mg/dL [facility] Aspartate Amino Transferase 21 5 - 31 U/L [facility] Alanine Aminotransferase 18 0 - 31 U/L [facility] Total Protein 7.6 6.5 - 8.0 g/dL [facility] Albumin Level 4.7 3.5 - 5.0 g/dL [facility] Alkaline Phosphatase 83 39 - 117 U/L [facility] Blood Venous blood specimen / Unknown 06/26/2025 12:34 PM EDT 06/26/2025 1:58 PM EDT Result [facility] LAB BLOOD ORDERABLES Vanessa l Result [facility] [address] [place] [address] [phone] * ECG 12 lead (06/26/2025 12:10 PM EDT) Narrative Kook Pearson CNP - 06/26/2025 12:10 PM EDT NSR, RBBB, QT interval prolongation versus artifact, no ST segmental changes. Consistent with prior studies. Result [facility] ECG ORDERABLES Final Res ult * MR Shoulder w/o Contrast Right (05/07/2025 6:50 PM EDT) Anatomical Region Laterality Modality Upper Extremities, Shoulder Right Magn etic Resonance 05/07/2025 6:50 PM EDT Narrative 05/07/2025 6:51 PM EDT [place] [address] Magnetic Resonance Report Signed Patient: Graciela Minaya MR#: [id number] 0 : 1970 Acct:[id number] Age/Sex: 55 / F ADM Date: 05/05/25 Loc: HO.MRI Attending Dr: Magdiel Field MD Ordering Physician: Magdiel Field MD Date of Service: 05/05/25 Procedure(s): MR shoulder RT wo con Accession Number(s): [id number] cc: Audrey Ayon MD; Magdiel Field MD [...] in OV> 05/07/251850 DD/ 49 TD/TT: 05/07/251849 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, Image - 05/07/2025 [place] [address] Magnetic Resonance Report Signed Patient: Graciela MinayaMR#: [id number] 0 : 1970Acct:[id number] Age/Sex: 55 / FADM Date: 05/05/25 Loc: HO.MRI Attending Dr: Magdiel Field MD Ordering Physician: Magdiel Field MD Date of Service: 05/05/25 Procedure(s): MR shoulder RT wo con Accession Number(s): [id number] cc: Audrey Ayon MD; Magdiel Field MD [...] in OV> 05/07/251850 DD/ 49 TD/TT: 05/07/251849 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 See individual assays for performing site location. Clinical Information: Postmenopausal [employer] LMP: PM [facility] Prev. PAP: NONE GIVEN [place] Prev. BX: NONE GIVEN [employer] SOURCE: Cervix [place] Statement Of Adequacy: [place] Comment: Satisfactory for evaluation. Endocervical/transformation zone component present. Interpretation/Re sult: Negative for intraepithelial lesion or malignancy. [place] COMMENT: This Pap test has been evaluated with computer assisted technology. 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 Cervical sources are required for HPV testing. If a vaginal source from a patient who has had a total hysterectomy with removal of cervix was submitted, please contact the testing laboratory for alternative testing options. For additional information, please refer to http://[employer]/faq/GRX920l0 (This link if provided for information/ educational purposes only.) Chlamydia trachomatis RNA, TMA, Urogenital NOT DETECTED NOT DETECTED [place] Neisseria gonorrhoeae RNA, TMA, Urogenital NOT DETECTED NOT DETECTED [facility] [place] [facility] Comment [place] Comment: The analytical performance characteristics of this assay, when used to test SurePath(TM) specimens have been determined by [employer]. The modifications have not been cleared or approved by the FDA. This assay has been validated pursuant to the CLIA regulations and is used for clinical purposes. For additional information, please refer to https://[employer]/faq/WTD793 (This link is being provided for information/ educational purposes only.) Trichomonas vaginalis, QL, TMA, PAP Vial NOT DETECTED NOT DETECTED [place] Comment: The analytical performance characteristics of this assay have been determined by [employer]. The modifications have not been cleared or approved by the FDA. This assay has been validated pursuant to the CLIA regulations and is used for clinical purposes. For additional information, please refer to http://[employer]/ faq/Trichomonastma (This link is being provided for information/ educational purposes only.) Cervix 02/01/2023 9:45 AM EDT 02/02/2023 9:43 AM EDT Audrey Ayon MD LAB CYTOLOGY ORDERABLES Final Result [facility] [address], [place] [address] [facility] [place] [facility] [address] [place] [address] * HIV-1 RNA, Quantitative, Real-Time PCR with Reflex to Genotype (RTI, PI, Integrase) (01/28/2023 8:37 AM EDT) HIV 1 RNA, QN PCR NOT DETECTED copies/mL [facility], HIV 1 RNA, QN PCR NOT DETECTED Log copies/mL [facility], Comment: REFERENCE RANGE: NOT DETECTED copies/mL NOT DETECTED Log copies/mL This test was performed using Real-Time Polymerase Chain Reaction. Reportable range is 20 to 10,000,000 copies/mL (1.30-7.00 Log copies/mL). 01/28/2023 8:37 AM EDT 01/28/2023 8:38 AM EDT Narrative [facility] - 01/30/2023 10:11 PM EDT FASTING:YES FASTING: YES us Audrey Ayon MD LAB BLOOD ORDERABLES Final Re sult [facility] [address], [place] [address] [facility], [address] [place] [address] * Hepatitis Panel, General (01/28/2023 8:37 AM EDT) Hepatitis A Antibody Total NON-REACT MAMADOU NON-REACT MAMADOU [facility] [place] [facility] Comment: For additional information, please refer to http://education.[employer]/faq/DXN640 (This link is being provided for informational/ educational purposes only.) Hepatitis B Surface Antibody QL NON-REACT MAMADOU NON-REACT MAMADOU [facility] [place] [facility] Hepatitis B Surface Ag NON-REACT MAMADOU NON-REACT MAMADOU [facility] [place] [facility] Hepatitis B Core Antibody Total NON-REACT MAMADOU NON-REACT MAMADOU [facility] [place] [facility] Hepatitis C Antibody NON-REACT MAMADOU NON-REACT MAMADOU [facility] [place] [employer] Index 0.06 <1.00 [facility] Comment: HCV antibody was non-reactive. There is no laboratory evidence of HCV infection. In most cases, no further action is required. However, if recent HCV exposure is suspected, a test for HCV RNA (test code 25753) is suggested. For additional information please refer to http://education.[employer]/faq/AQA12o3 (This link is being provided for informational/ educational purposes only.) 01/28/2023 8:37 AM EDT 01/28/2023 8:38 AM EDT Narrative [facility] - 01/30/2023 10:11 PM EDT FASTING:YES FASTING: YES Audrey Ayon MD LAB BLOOD ORDERABLES Final Re sult [facility] [address], [place] [address] [facility] [place] [facility] [address] [place] [address] from Last 3 Months or Most Recently Relevant to Health Maintenance Insurance [facility] C[facility]AL-[facility] MEDICAID STAND ADULT [address] [place] [address] [address] [place] [id number] [address] [place] [address] Care Teams Occupational Therapy Director Relationship Specialty Start Date End Date Audrey Ayon MD [address] [place] [address] [place] [address] PCP - General Internal Medicine 02/01/23
== END 2025-07-25 15:30 | disposition home or self-care (01) ==
PROVIDERS: PCP Pediatrics; Visit Provider Physician Assistant
DX: M25.311 Other instability, right shoulder (principal); M75.42 Impingement syndrome of left shoulder
CPT/HCPCS: 99024

== ENCOUNTER → 2025-07-25 13:39 | Outpatient (BNVA) | payer MEDICAID, SELFPAY | PROVIDERS: PCP Pediatrics; Visit Provider Orthopaedic Surgery | DX: M25.311 Other instability, right shoulder (principal); M75.42 Impingement syndrome of left shoulder | CPT/HCPCS: 99212 ==

== ENCOUNTER 2025-08-26 10:00 | Outpatient (RCR) | payer MEDICAID, SELFPAY ==
--- NOTE | 2025-08-12 09:38 | MHC.PT.EP ---
[facility] [place] [facility] [place] Office [place] Office [address] Anson Jorge [address] [phone] F: [phone] F: [phone] F: [phone] F: [phone] Physical Therapy Plan of Care Date of Evaluation: 08/12/25 Date of Surgery: 07/12/2025 Diagnosis: impingement syndrome R shoulder s/p 07/12/2025 Assessment: Patient is a 55 year old female presenting to PT s/p R shoulder 07/12/2025. She is demonstrating impairments in pain, ROM, strength, posture Pt's current occupation is none, with baseline physical activities including reaching, lifting, ADLs. Pt expresses care home goal of reducing pain, and is motivated to work towards this in PT. Clinical presentation today is most consistent with signs and sx associated with R shoulder 07/12/2025 and pt will benefit from skilled PT 2 week x 4 weeks to address the following problems and impairments noted upon evaluation: strength, ROM, pain, posture. These problems limit the patient with the following functional activities: reaching, lifting, ADLs. The prescribed treatment plan of care is medically necessary. Co-morbidities of none were identified and taken into considerations of plan of care. Pt was educated on HEP, role of PT, prognosis, POC. Frequency and Duration: The patient will be seen 2 x week x 4 weeks Short Term Goals: Pt will demonstrate improved R shoulder ROM by 20 degrees in all directions in 2 weeks. Pt will demonstrate R shoulder MMT at least 3/5 in 2 weeks. Pt will demonstrate compliance with initial HEP in 1 visit. Alf Goals: Pt will demonstrate improved SPADI score by 13 points in 4 weeks for improved functional mobility Pt will demonstrate ROM equal B in 4 weeks for improved ability to reach. Pt will demonstrate R shoulder MMT at least 4-/5 in 4 weeks for improved tolerance to ADLs. Treatment Plan: Modalities to reduce pain, spasms and effusion. Manual therapy to restore motion and function. Therapeutic exercise to improve strength and flexibility. Neuromuscular re-education for posture and balance. Therapeutic activities to return to functional activities of daily living. Electronically signed by: Beatris Zamora, PT, DPT, ATC Please sign and return to therapist. Thank you for your referral.
--- NOTE | 2025-08-28 15:37 | MHC.PT.DC ---
[facility] [place] Office [place] Office [place] Office [address] Anson Jorge 140 [facility] [phone] F: [phone] F: [phone] F: [phone] F: [phone] Physical Therapy Discharge Report Diagnosis: impingement syndrome R shoulder s/p 07/12/2025 Date of Surgery: 07/12/2025 Date of Evaluation: 08/12/25 Date of Discharge: 08/28/25 Treatments to Date: 4 Cancellations to Date: 3 No Shows to Date: 0 Discharge Status: Patient Elected to Stop Physician Discontinued Tx Discharge Summary: Pt called stating her doctor told her she did not need to continue attending PT. Therefore pt would like to be d/c. Electronically signed by: Beatris Zamora, PT, DPT, ATC Please sign and return to therapist. Thank you for your referral.
== END 2025-08-28 15:38 | disposition home or self-care (01) ==
LOC: HO.PTCHIC 10:00
PROVIDERS: PCP Pediatrics; Visit Provider Physician Assistant
DX: M25.311 Other instability, right shoulder (principal); M75.42 Impingement syndrome of left shoulder
CPT/HCPCS: 97110; 97161

== ENCOUNTER 2025-08-28 10:02 | Outpatient (AMB) | payer MEDICAID, SELFPAY ==
--- NOTE | 2025-08-28 10:05 | A.OFFVIS_ITS ---
Vital Signs 08/28/25 10:12 Height 5 ft 3 in Weight 170 lb BMI 30.1 Intake Visit Reasons: PO- RT shoulder , DOS 07/12/25 Intake Note: Graciela is a 55 year old female who presents with complaints of mild to moderate discomfort in her right shoulder after undergoing right shoulder arthroscopic surgery on 07/12/2025. The patient continues with her physical therapy exercis es. She denies any fevers or chills. Allergies amoxicillin Allergy (Intermediate, Verified 08/28/25 10:10) Hives ampicillin Allergy (Intermediate, Verified 08/28/25 10:09) Hives Medication List - Last Reconciled 08/28/25 by Magdiel Field MD hydromorphone (Dilaudid) 2 mg PO Q8H PRN 7 days ibuprofen 800 mg PO Q8H PRN multivitamin 1 tab PO QAM PFSH Medical History (Updated 08/28/25 @ 11:10 by Magdiel Field MD) Arthritis Chronic cough Rotator cuff insufficiency of right shoulder Surgical History (Updated 08/28/25 @ 10:13 by Leidy Borges [facility]) Status post arthroscopy of right shoulder (~07/12/25) Hx of tubal ligation Social History Are you a primary summer child caregiver to a significant other at home: No Do you presently have visiting nurse or other home services: No Alcohol intake: never Patient Tobacco Use Status: Never used Tobacco Current occupational status: employed 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 No heavy Lifting. Physical Exam Vital Signs: BMI result Body Mass Index 30.1 Extrem Other: Right shoulder examination shows that the surgical incisions are well healed, no erythema, slightly decreased range of motion when compared to her left shoulder, no instability Assessment & Plan Assessment & Plan (1) Right shoulder pain: Code(s): M25.511 - Pain in right shoulder Category: Medical Plan Ms. Minaya continues to do fairly well after undergoing right shoulder arthroscopic surgery on 07/12/2025. She will continue with her physical therapy exercises. The do's and don'ts of lifting were discussed at length with the patient. I discussed with the patient the fact that her discomfort should continue to improve over the next few months. She will contact me prior to her follow-up appointment in 2-3 months should any questions or concerns arise. Feel free to call me at any time should questions regarding her orthopedic management arise. Coding Level of Care Code Global (22458) Diagnoses Right shoulder pain M25.511
[2025-08-28 10:12] VITALS: BMI 30.1
--- OUTSIDE RECORDS SUMMARY | 2025-08-28 11:21 | XMS_ITS | Clinical Summary ---
Author Organization [employer] Address [address] [facility] [address] [place] [address] Care Team Providers Care Lathe Turner Name Role Phone Audrey Ayon MD Primary Care Provider [phone] Allergies Active Allergy Reactions Criticality Noted Date Comments Ampicillin Hives Low 03/13/2024 Acetaminophen Low 03/13/2024 Upset stomach Medications triamcinolone (Kenalog) 0.1 % creamIndicatio ns:Psoriasis Apply topically if needed in the morning and at bedtime (pain and swelling). 30 g 2 06/26/20 25 Active ibuprofen 400 MG tablet Take 1 tablet (400 mg) by mouth every 8 (eight) hours if needed for moderate pain. 90 tablet 1 08/21/20 25 026 Active Acetaminophen 500 MG capsule Take 1 capsule orally tid prn pain 90 capsule 3 08/21/20 25 Active cetirizine (ZyrTEC) 10 MG tablet Take 1 tablet (10 mg) by mouth Once per day. 90 tablet 08/21/20 25 026 Active Acetaminophen 500 MG capsule Take 1 capsule orally tid prn pain 90 capsule 3 08/21/20 25 025 Discontinued(Re order (will not trigger notification to Pharmacy)) Active Problems Problem Noted Date Diagnosed Date Impingement syndrome of left shoulder 08/21/2025 Calcific tendinitis of right shoulder 06/26/2025 COVID-19 06/26/2025 Rotator cuff insufficiency of right shoulder 09/2024 Resolved Problems Problem Noted Date Diagnosed Date Resolved Date Anxiety 01/27/2023 06/26/2025 Mood disorder 01/27/2023 06/26/2025 Encounters Date Type Department Care Team Description 08/28/2025 Telephone [facility] [address] [place] [address] Carmen Quiroz RN 08/21/2025 11:00 AM EST Office Visit [facility] [address] [place] [address] Audrey Ayon MD Breast cancer screening by mammogram (Primary Dx); Dietary counseling; Exercise counseling; Rotator cuff insufficiency of right shoulder 08/21/2025 Travel 08/14/2025 Travel 08/01/2025 Travel 07/29/2025 Telephone [facility] [address] [place] [address] Audrey Ayon MD Provider out/ r/s appt 07/25/2025 Travel 06/28/2025 Orders Only [facility] [address] [place] [address] Koko Pearson CNP Pre-op evaluation (Primary Dx) 06/26/2025 10:45 AM EDT Office Visit [facility] [address] [place] [address] Koko Pearson CNP Pre-op evaluation (Primary Dx); Psoriasis 06/26/2025 Travel 06/26/2025 Telephone [facility] [address] [place] [address] Audrey Ayon MD chart prep 06/19/2025 Travel 06/11/2025 Telephone [facility] [address] [place] [address] Audrey Ayon MD Pre-op Exam from Last 3 Months Social History Tobacco [...] Sign Reading Time Taken Comments Blood Pressure 124/76 08/21/2025 10:58 AM EST Pulse 74 08/21/2025 10:58 AM EST Temperature 36 C (96.8 F) 08/21/2025 10:58 AM EST Respiratory Rate 16 08/21/2025 10:58 AM EST Oxygen Saturation 97% 03/20/2025 8:52 AM EDT Inhaled Oxygen Concentration - - Weight 77.6 kg (171 lb) 08/21/2025 10:58 AM EST Height 160 cm (5' 3 ) 06/26/2025 10:46 AM EDT Body Mass Index 30.29 06/26/2025 10:46 AM EDT Plan of Treatment [...] 03/13/2024, 024 Dental X-Ray: Full Mouth 06/03/2025 06/02/2022, 0903/2022 Colorectal Cancer Screening 02/10/2026 FIT DNA/Cologuard 02/10/2026 [...] Routine 06/26/2025 12:10 PM EDT Pre-op evaluation HM MAMMOGRAPHY Routine 02/21/2024 IMAGE-GUIDED PAP W/AGE [...] Blood Count 8.7 4.8 - 10.8 X10*3/uL [facility] Red Blood Count 5.06 4.20 - 5.50 X10*6/uL [facility] Hemoglobin 14.1 12.0 - 16.0 g/dl [facility] Hematocrit 43.3 37.0 - 47.0 % [facility] Mean Corpuscular Volume 85.6 80.0 - 98.0 fL [facility] Mean Corpuscular Hemoglobin 27.9 27.0 - 33.0 pg [facility] Mean Corpuscular HGB Conc 32.6 31.0 - 35.0 g/dl [facility] Red Cell Distribution Width 12.6 11.0 - 16.0 % [facility] Platelet Count 359 160 - 400 X10*3/uL [facility] Mean Platelet Volume 9.9 9.4 - 12.3 fL [facility] Neutrophils Percent Auto 59.7 45 - 73 % [facility] Imm Gran Pct Auto 0.5(H) 0.0 - 0.4 % [facility] Lymphocytes Percent Auto 31.0 20 - 40 % [facility] Monocytes Percent Auto 5.6 2 - 11 % [facility] Eosinophils Percent Auto 2.2 0 - 4 % [facility] Basophils Percent Auto 1.0 0 - 2 % [facility] NRBC Pct Auto 0.0 0.0 - 0.2 /100WBC [facility] Neutrophils Absolute Auto 5.2 2.0 - 8.3 x10*3/uL [facility] Imm Gran Abs Auto 0.04(H) 0.00 - 0.03 X10*3/uL [facility] Lymphocytes Absolute Auto 2.7 1.2 - 4.9 X10*3/uL [facility] Monocytes Absolute Auto 0.5 0.1 - 1.2 X10*3/uL [facility] Eosinophils Absolute Auto 0.2 0.0 - 0.4 X10*3/uL [facility] Basophils Absolute Auto 0.1 0.0 - 0.2 X10*3/uL [facility] NRBC Abs Auto 0.000 0.0 - 0.012 X10*3/uL [facility] Blood Venous blood specimen / Unknown 06/26/2025 12:34 PM EDT 06/26/2025 1:58 PM EDT [facility] LAB BLOOD ORDERABLES Vanessa l Result Performing Organization Address [facility] Co de Phone Number [facility] [address] [place] [phone] * (ABNORMAL) Partial Thromboplastin Time, Activated (APTT) (06/26/2025 12:34 PM EDT) Partial Thromboplastin Time 34.2(H) 26.7 - 34.1 SEC [facility] Blood Venous blood specimen / Unknown 06/26/2025 12:34 PM EDT 06/26/2025 1:58 PM EDT [facility] LAB BLOOD ORDERABLES Vanessa l Result Performing Organization Address [facility] Phone Number [facility] [address] [place] [phone] * (ABNORMAL) Prothrombin Time-INR (06/26/2025 12:34 PM EDT) Prothrombin Time 12.7(H) 10.9 - 12.4 SEC [facility] INTERNATIONAL NORM RATIO 1.1 0.9 - 1.1 [facility] Comment:INTERNATIONAL NORMAL IZED RATIO [...] 12:34 PM EDT 06/26/2025 1:58 PM EDT [facility] LAB BLOOD ORDERABLES Vanessa l Result Performing Organization Address [facility] Co de Phone Number [facility] [address] [place] [address] [place] [phone] * (ABNORMAL) Comprehensive Metabolic Panel (06/26/2025 12:34 PM EDT) Sodium 141 135 - 145 mmol/L [facility] Potassium 3.8 3.3 - 5.1 mmol/L [facility] Chloride 110(H) 96 - 108 mmol/L [facility] Carbon Dioxide 25 22 - 29 mmol/L [facility] Anion Gap 10(L) 12 - 20 [facility] Urea Nitrogen (BUN) 20(H) 9 - 16 mg/dL [facility] Creatinine, Serum 0.74 0.5 - 1.4 mg/dL [facility] Estimated Glomerular Filt Rate >60 [facility] Comment:Chronic Kidney Disea se: Estimated GFR < 60 mL/min/1.85w3Widgjb Kidney Disease: Estimated GFR < 15 mL/min/1.73m2 Glucose 106 60 - 115 mg/dL [facility] Calcium 10.2 8.4 - 10.2 mg/dL [facility] Bilirubin, Total 0.5 0.0 - 1.0 mg/dL [facility] Aspartate Amino Transferase 21 5 - 31 U/L [facility] Alanine Aminotransferase 18 0 - 31 U/L [facility] Total Protein 7.6 6.5 - 8.0 g/dL [facility] Albumin Level 4.7 3.5 - 5.0 g/dL [facility] Alkaline Phosphatase 83 39 - 117 U/L [facility] Blood Venous blood specimen / Unknown 06/26/2025 12:34 PM EDT 06/26/2025 1:58 PM EDT Koko Pearson CNP LAB BLOOD ORDERABLES Vanessa l Result [facility] [address] [place] [phone] * ECG 12 lead (06/26/2025 12:10 PM EDT) Narrative Koko Pearson CNP - 06/26/2025 12:10 PM EDT NSR, RBBB, QT interval prolongation versus artifact, no ST segmental changes. Consistent with prior studies. Result [facility] Koko Pearson [facility] ECG ORDERABLES Final Res ult * Hm Mammography (02/21/2024) Mammogram BIRADS 1 Normal, Abnormal, BIRADS 1 , BIRADS 2 Anatomical Region Laterality Modality Other Audrey Ayon MD HEALTH MAINTENANCE Final Resu lt * Image-Guided Pap with Age-Based Screening??with CT/NG,??Trichomonas (02/01/2023 9:45 AM EDT) Comment [facility] Comment: This order for age-based cervical cancer and STI screening follows ACOG guidelines(PB 168, 140, PVL536). See individual assays for performing site location. Clinical Information: Postmenopausal [facility] LMP: PM [facility] Prev. PAP: NONE GIVEN [facility] Prev. BX: NONE GIVEN [employer] [facility] SOURCE: Cervix [facility] Statement Of Adequacy: [facility] Comment: Satisfactory for evaluation. Endocervical/transformation zone component present. Interpretation/Re sult: Negative for intraepithelial lesion or malignancy. [facility] Comment: This Pap test has been evaluated with computer assisted technology. [facility] Substation Engineer: Nick Enforcer [employer] Comment: WAC, CT(ASCP) CT screening location: [place] [address] (Always Message) [facility] Comment: EXPLANATORY NOTE: The Pap is a [...] HPV nRNA E6/E7 Not Detected Not Detected [facility] Comment: Methodology: Chief Technician-Mediated Amplification This assay detects E6/E7 viral messenger RNA (mRNA) from 14 high-risk HPV types (16,18,31,33,35,39,45,51,52,56,58,59,66,68). Cervical sources are required for HPV testing. If a vaginal source from a patient who has had a total hysterectomy with removal of cervix was submitted, please contact the testing laboratory for alternative testing options. For additional information, please refer to http://Cortexyme.Video Furnace/faq/QKQ280c6 (This link if provided for information/ educational purposes only.) Chlamydia trachomatis RNA, TMA, Urogenital NOT DETECTED NOT DETECTED [facility] Neisseria gonorrhoeae RNA, TMA, Urogenital NOT DETECTED NOT DETECTED [facility] Comment [facility] Comment: The analytical performance characteristics of this assay, when used to test SurePath(TM) specimens have been determined by [facility]. The modifications have not been cleared or approved by the FDA. This assay has been validated pursuant to the CLIA regulations and is used for clinical purposes. For additional information, please refer to https://Naurex/faq/LRW411 (This link is being provided for information/ educational purposes only.) Trichomonas vaginalis, QL, TMA, PAP Vial NOT DETECTED NOT DETECTED [facility] Comment: The analytical performance characteristics of this assay have been determined by [facility]. The modifications have not been cleared or approved by the FDA. This assay has been validated pursuant to the CLIA regulations and is used for clinical purposes. For additional information, please refer to http://[employer]/ faq/Trichomonastma (This link is being provided for information/ educational purposes only.) Cervix 02/01/2023 9:45 AM EDT 02/02/2023 9:43 AM EDT us Audrey Ayon MD LAB CYTOLOGY ORDERABLES Final Result [address], [place] [address] [facility] [address] [place] [address] * HIV-1 RNA, Quantitative, Real-Time PCR with Reflex to Genotype (RTI, PI, Integrase) (01/28/2023 8:37 AM EDT) Pathologist [facility] HIV 1 RNA, QN PCR NOT DETECTED copies/mL [facility] [employer] [facility], HIV 1 RNA, QN PCR NOT DETECTED Log copies/mL [facility], Comment: REFERENCE RANGE: NOT DETECTED copies/mL NOT DETECTED Log copies/mL This test was performed using Real-Time Polymerase Chain Reaction. Reportable range is 20 to 10,000,000 copies/mL (1.30-7.00 Log copies/mL). 01/28/2023 8:37 AM EDT 01/28/2023 8:38 AM EDT [facility] 01/30/2023 10:11 PM EDT FASTING:YES FASTING: YES us Audrey Ayon MD LAB BLOOD ORDERABLES Final Re sult [facility] [address] [facility], [facility], [place] [address] [facility], [address] [place] [address] * Hepatitis Panel, General (01/28/2023 8:37 AM EDT) Pathologist [facility] Hepatitis A Antibody Total NON-REACT MAMADOU NON-REACT MAMADOU [facility] [place] [employer] Comment: For additional information, please refer to http://education.Video Furnace/faq/RAZ832 (This link is being provided for informational/ educational purposes only.) Hepatitis B Surface Antibody QL NON-REACT MAMADOU NON-REACT MAMADOU [facility] [place] [facility] Hepatitis B Surface Ag NON-REACT MAMADOU NON-REACT MAMADUO [facility] [place] [facility] Hepatitis B Core Antibody Total NON-REACT MAMADOU NON-REACT MAMADOU [facility] [place] [employer] Hepatitis C Antibody NON-REACT MAMADOU NON-REACT MAMADOU [facility] [place] [employer] [employer] [facility] Index 0.06 <1.00 [facility] [place] [employer] [facility] Comment: HCV antibody was non-reactive. There is no laboratory evidence of HCV infection. In most cases, no further action is required. However, if recent HCV exposure is suspected, a test for HCV RNA (test code 50264) is suggested. For additional information please refer to http://education.Video Furnace/faq/SQN54j6 (This link is being provided for informational/ educational purposes only.) 01/28/2023 8:37 AM EDT 01/28/2023 8:38 AM EDT Narrative [facility] - 01/30/2023 10:11 PM EDT FASTING:YES FASTING: YES us Audrey Ayon MD LAB BLOOD ORDERABLES Final Re sult [facility] [address] [place] [address] [employer] [facility] [place] [employer] [address] [place] [address] from Last 3 Months or Most Recently Relevant to Health Maintenance Insurance [facility] C3 [facility] MEDICAID STAND ADULT [address] [place] [address] [address] [place] [id number] [place] [address] Care Teams Lathe Turner Relationship Specialty Start Date End Date Audrey Ayon MD [address] [place] [address] [place] [address] PCP - General Internal Medicine 02/01/23
--- OUTSIDE RECORDS SUMMARY | 2025-08-28 11:21 | XMS_ITS | Encounter Summary ---
Author Organization [employer] Address [address] [place] [address] Care Team Providers Care Director Of Manufacturing Name Role Phone Audrey Ayon MD Primary Care Provider [phone] Encounter Details Date Type Department Care Team [...] on filedocumented in this encounter Care Teams Director Of Manufacturing Relationship Specialty Start Date End Date Audrey Ayon MD [address] [place] [address] PCP - General Internal Medicine 02/01/23 documented as of this encounter
--- OUTSIDE RECORDS SUMMARY | 2025-08-28 11:21 | XMS_ITS | Encounter Summary ---
Author Organization [employer] Address [address] [place] [address] Care Team Providers Care Cosmetic Counselor Name Role Phone Audrey Ayon MD Primary Care Provider [phone] Encounter Details Date Type Department Care Team (Late st Contact Info) Description 08/28/2025 Telephone [facility] [address] [place], [place] [phone] Carmen Quiroz RN [address] [place] [address] Social History Tobacco Use Types Packs/Day Years [...] documented as of this encounter Care Teams Cosmetic Counselor Relationship Specialty Start Date End Date Audrey Ayon MD [address] [place] [phone] PCP - General Internal Medicine 02/01/23 documented as of this encounter
== END 2025-08-28 10:31 | disposition home or self-care (01) ==
LOC: HO.HOS 10:03
PROVIDERS: PCP Pediatrics; Visit Provider Orthopaedic Surgery
DX: M25.511 Pain in right shoulder (principal)
CPT/HCPCS: 99024

== ENCOUNTER → 2025-08-28 10:02 | Outpatient (BNVA) | payer MEDICAID, SELFPAY | PROVIDERS: PCP Pediatrics; Visit Provider Orthopaedic Surgery | DX: M25.511 Pain in right shoulder (principal) | CPT/HCPCS: 99212 ==